=== PATIENT | female | born 1960 | race Caucasian/White ===

== ENCOUNTER 2016-11-11 14:52 | Inpatient (IN) | payer OTHER ==
[~2016-11-11] VITALS: Ht 157.5 cm; Wt 204.1 kg
[~2016-11-11 14:52] MED LIST: BENADRYL25 MG PO; CATAPRES-TTS0.1 MG TOP; COUMADIN5 MG PO; CYCLOBENZAPRINE5 MG PO; FUROSEMIDE20 MG PO; LOPRESSOR25 MG PO; LOVENOX80 MG/0.8 SC; LYRICA25 MG PO; MEIJER ASPIRIN E5 GR; METOPROLOL SUCC25 MG PO; MORPHINE SULFAT30 M4 PO; MULTIVITAMIN1 TAB PO; OXAYDO5 MG; PROTONIX40 MG PO; VITAMIN A
--- NOTE | 2016-11-11 15:56 | DIAGNOSTIC IMAGING REPORT ---
PROCEDURE: XR CHEST 1 VIEW INDICATION: SHORTNESS OF BREATH TECHNIQUE: Portable AP view 03:13 p.m. COMPARISON: Chest 04/29/2016 and 02/23/2016 FINDINGS: Worsening of cardiomegaly and pulmonary vascular congestion. IMPRESSION: 1. CHF
--- NOTE | 2016-11-11 16:56 | ED ORDER SUMMARY ---
..... Patient: PUJA TREJO OrderSheet [facility] VisitID: [id number] [place] [address] 56y, F Registration Date/Time: 11/11/2016 ORDER SHEET Weight: 170.0 kg (stated) Allergies: No Known Drug Allergy GENERAL ORDERS: Chest 1V Urgent (14:59 [facility]/2016 [facility] (Ack 15:04 LTapper) (15:25 EInderbitzen R.N.) Work Checker (Continuous) (14:59 [facility]2016 [facility] (15:03 EInderbitzen R.N.) UA-Culture if indicated Urgent (:11/11/2016 [facility] ) (Ack 15:04 LTapper) Cardiac Panel Stat (:11/11/2016 [facility] (Ack 15:04 LTapper) (15:25 EInderbitzen R.N.) BNP Urgent (15:11/11/2016 [facility]) (Ack 15:04 LTapper) (15:25 EInderbitzen R.N.) D-Dimer Urgent (15:11/11/2016 [facility]) (Ack 15:04 LTapper) (15:25 EInderbitzen R.N.) Amylase Urgent (15:11/11/2016 [facility]) (Ack 15:04 LTapper) (15:25 EInderbitzen R.N.) TSH Urgent (15:11/11/2016 [facility]) (Ack 15:04 LTapper) (15:25 EInderbitzen R.N.) Lipase Urgent (15:11/11/2016 [facility]) (Ack 15:04 LTapper) (15:25 EInderbitzen R.N.) Urine Drug Screen Urgent (15:11/11/2016 [facility]) (Ack 15:04 LTapper) PT with INR Urgent (15:11/11/2016 [facility]) (Ack 15:04 LTapper) (15:25 EInderbitzen R.N.) Oxygen (2 L/min) (NC) (15:00 11/11/2016 [facility]) (15:03 EInderbitzen R.N.) Pulse oximeter (15:00 11/11/2016 [facility]) (15:03 EInderbitzen R.N.) EKG - ER Stat (15:00 11/11/2016 [facility]) (Ack 15:04 LTapper) (17:11 EInderbitzen R.N.) Vitals (15:00 11/11/2016 [facility]) (15:04 EInderbitzen R.N.) CTA Thorax w Cont (No) (GFR>60) (elevated d-dimer) Urgent (16:01 11/11/2016 [facility]) (Ack 16:02 LTapper) (Cancelled: pt cannot fit in the scanner or lay flat for the study17:12 [facility]) MEDICATION ORDERS: Aspirin PO 325 mg (if not taken today) (14:59 11/11/2016 [facility]) (15:29 EInderbitzen R.N.) DuoNeb Neb Tx 1 unit dose (NOW) (16:53 11/11/2016 [facility]) (17:07 RMcCarson) NitroGLYCERIN Paste Topical 1.5 in. (NOW, to CW) (16:53 11/11/2016 [facility]) (17:32 EInderbitzen R.N.) IV FLUIDS: IV Saline Lock (15:00 11/11/2016 [facility]) (15:17 EInderbitzen R.N.) Lasix IV 40 mg (NOW) (16:54 11/11/2016 [facility]) (17:34 EInderbitzen R.N.) ORDER SHEET NOTES: [Electronically signed by Elder Cadet DO (21:44 11/11/2016)] [Electronically signed by Jennifer Mark R.N. (22:22 11/11/2016)] [Electronically locked/signed by Jennifer Mark R.N. (22:22 11/11/2016)]
--- NOTE | 2016-11-11 16:56 | ED NURSING NOTES ---
Clinical Report - Nurses [facility] [address] [place] [address] 11/11/2016 14:53 Patient: PUJA TREJO TRIAGE Triage time 14:45 Nov 11 2016. Acuity: LEVEL 3. Chief Complaint: SHORTNESS OF BREATH and (DYSPNEA ON EXERTION). 14:52 11/11/16. --14:52 Jennifer Mark R.N. 14:47 11/11/16. BP: 137/112. HR: 79. RR: 20. O2 saturation: 98% on nasal cannula at 2 liters/minute. Temp: 98.2 F. Pain level now: 01/31. --14:52 Jennifer Mark R.N. Weight: 170 kg stated. Height/Length: 62 inches Per Patient. BMI: 68.6. --14:49 Jennifer Mark R.N. Medications Warfarin Sodium Oral (Tablet 3 mg) 1-1/2 tablets, daily. --17:35 Jennifer Mark R.N. HydrOXYzine HCl Oral (Tablet 25 mg) 1 tablet, 4x a day. --17:35 Jennifer Mark R.N. Suboxone Sublingual (Film 8-2 mg) 1, DAILY. --17:36 Jennifer Mark R.N. Spironolactone Oral (Tablet 25 mg) 1 tablet, daily. --17:36 Jennifer Mark R.N. BusPIRone HCl Oral (Tablet 10 mg) 1 tablet, 2x a day. --17:36 Jennifer Mark R.N. Pantoprazole Sodium Oral (Tablet Delayed Release 40 mg) 1 tablet, daily. --17:37 Jennifer Mark R.N. Lopressor Oral (Tablet 50 mg) 1 tablet, 2x a day. --17:37 Jennifer Mark R.N. The following entry was struck by Jennifer Mark R.N., 18:37 (11/11/16) Reason - other. <<STRICKEN ENTRY-- Metoprolol Tartrate Oral. --17:37 Jennifer Mark R.N. --END STRIKE>>. Medication/allergy information source: the patient. --14:52 Jennifer Mark R.N. Allergies No Known Drug Allergy. --14:48 Jennifer Mark R.N. History Arrived by EMS. Historian: patient. This started today. ( AT HOME TODAY, WAS UNABLE TO WALK FAR NORMAL WITHOUT GETTING MORE SHORT OF BREATH. NORMALLY USES O2 AT 2-3 LITERS WITH SATS IN MID 90S. COMPLAINS OF CHEST HEAVINESS. NOT FEELING WELL AT HOME FOR A WEEK WITH SOME DIARRHEA, INCONTINENT OF STOOL). The patient has had wheezing and chest pain. No fever, chills or cough. Treatment CERTIFIED TUMOR REGISTRAR: None. PAST MEDICAL HX: Congestive heart failure. Chronic obstructive pulmonary disease. Has not received pneumonia vaccine or seasonal influenza immunization. SOCIAL HX: Never smoker. No alcohol use or drug use. No infectious disease exposure. ABUSE ASSESSMENT: No report of abuse. SELF HARM ASSESSMENT: A self harm assessment was performed. The patient answered "no" to the question "Have you recently felt down, depressed, or hopeless?", "Have you noticed less interest or pleasure in doing things?", "Do you have thoughts of harming or killing yourself?", "Are you here because you tried to hurt yourself?", "Have you ever tried to hurt yourself before today?", "Have you recently had thoughts about harming or killing others?" and "Do you have any dangerous items in your possession?". NUTRITIONAL RISK ASSESSMENT: The nutritional risk assessment revealed no deficiencies. FUNCTIONAL ASSESSMENT: Functional assessment: no impairments noted. LEARNING NEEDS ASSESSMENT: The learning needs assessment revealed no barriers. SKIN INTEGRITY ASSESSMENT: Skin integrity risk assessment completed. No skin integrity risk identified. --14:52 Jeninfer Mark R.N. Interventions ID band on patient. --14:52 Jennifer Mark R.N. NURSING PROGRESS NOTES 14:53 11/11/16. Cardiac rhythm: atrial fibrillation. The initial plan of care for this patient includes an assessment with efforts to address the presence of pain; impairment of the cardiovascular, respiratory and gastrointestinal system. This plan of care was discussed with the patient. Patient gowned. Reassurance given. Patient identifiers checked. Call light placed in reach. Side rails up x 1. Bed placed in lowest position. Brakes of bed on. Patient ready for evaluation. --14:53 Jennifer Mark R.N. 14:56 11/11/16. 2.5 liters reapplied. emergency room registered nurse, pulse oximeter and NIBP monitor placed on patient; cardiac catheterization technician- Lead II; monitor alarms on. --14:56 Jennifer Mark R.N. 15:10 11/11/2016 Site #1 started via IV in the left hand with an 20g angiocath, with aseptic technique and good blood return; one attempt. Blood drawn: rainbow set. Labeled in the presence of the patient and sent to the lab. Saline lock flushed with 10 mL saline. --15:16 Jennifer Mark R.N. 15:16 11/11/16. Portable chest x-ray performed. ( Patient examined by Dr Cadet). --15:16 Jennifer Mark R.N. 15:26 11/11/2016 Aspirin PO Tablets 324 mg given. Allergies verified and confirmed 5 rights. --15:29 Jennifer Mark R.N. 16:15 11/11/16. Cardiac rhythm: atrial fibrillation. The patient is calm and resting quietly. Overall patient status is the same- she states feels the same. ( CT of chest for PE ordered. Pt refusing. States unable to lay flat without severe respiratory distress and panic. States does not want the test.). --16:15 Jennifer Mark R.N. 16:15 11/11/16. BP: 112/56. HR: 86. RR: 24. O2 saturation: 97%. Pain level now 2/10. --16:15 Jennifer Mark R.N. 16:20 11/11/16. ( Per Miles from CT, patient will not fit in gantry for CT scan). --16:20 Jennifer Mark R.N. <<STRICKEN ENTRY-- EKG time: (15:01 PM). EKG was performed by a tech and shown to the ED physician. --16:28 Jenn Her --END STRIKE>> Time on EKG 15:31 --16:32 Jenn Her EKG time: (15:31). EKG was performed by a tech and shown to the ED physician. --16:33 Jenn Her 17:07 11/11/2016 Duoneb (Ipratropium-Albuterol) Neb TX Nebulizer 1 unit dose given. --17:07 Vernonharsh Araceli 17:31 11/11/2016 NITROGLYCERIN PASTE Topical Paste 1.5 inch. Applied to the right upper arm. Allergies verified and confirmed 5 rights. --17:32 Jennifer Mark R.N. 17:32 11/11/2016 Lasix IVP 40 mg given over 2 minute(s) via site #1. Allergies verified and confirmed 5 rights. IV patency established. IV site checked: no pain, redness, or swelling. IV flushed thoroughly pre- and post-medication administration. IVP given by RN. --17:34 Jennifer Mark R.N. 17:38 11/11/16. Cardiac rhythm: atrial fibrillation. --17:38 Jennifer Mark R.N. 17:38 11/11/16. BP: 138/59. HR: 88. RR: 24. O2 saturation: 96%. Temp: 98.7 F. Pain level now 2/10. --17:38 Jennifer Mark R.N. 18:03 11/11/16. ( Patient assisted to bariatric bedside commode. Failure to align marie properly, voided on floor. Pt upset but reassurance given. Pt elected to stay on bedside commode until she is transported upstairs. states will be voiding every 10 minutes following lasix administration). --18:04 Jennifer Mark R.N. DISPOSITION / DISCHARGE 18:39 11/11/2016 Site #[address] upon admission. Good blood return present; flushes easily. --18:39 Jennifer Mark R.N. Condition at departure: improved and stable. The goals identified in the patient's plan of care were met. Transported via stretcher. Report was given to a nurse via a phone call. Report included patient's care, treatment, medications, reviewed medication reconcilliation, and condition (including any recent changes or anticipated changes). All questions were answered. Bed obtained (206). FALL RISK ASSESSMENT: Fall risk assessment completed. No fall risk identified. --18:40 Jennifer Mark R.N. 18:35 11/11/16. BP: 139/60. HR: 70. RR: 22. O2 saturation: 96%. Temp: 98.5 F. Pain level now: 0/10. --18:40 Jennifer Mark R.N. Departure time: 18:40 Nov 11 2016. --18:40 Jennifer Mark R.N. Locked/Released at 11/11/2016 22:22 by Jennifer Mark R.N.
--- NOTE | 2016-11-11 16:56 | ED CLINICAL REPORT ---
Clinical Report - Physicians/Mid Levels [facility] [address] [place] [address] 11/11/2016 14:53 Patient: PUJA TREJO Time Seen: 14:55. Arrived- By ambulance. Historian- patient and EMS personnel. HISTORY OF PRESENT ILLNESS Chief Complaint: DYSPNEA and CHEST PAIN. This started today and is still present. It was gradual in onset and has been waxing/waning. The dyspnea is described as moderate and is worsened by walking and exertion, is improved by rest and is improved with oxygen. The patient has had a cough, chest discomfort and dyspnea on exertion. No fever. (AT HOME TODAY, WAS UNABLE TO WALK FAR NORMAL WITHOUT GETTING MORE SHORT OF BREATH. NORMALLY USES O2 AT 2-3 LITERS WITH SATS IN MID 90S. COMPLAINS OF CHEST HEAVINESS. NOT FEELING WELL AT HOME FOR A WEEK WITH SOME DIARRHEA, INCONTINENT OF STOOL). Similar symptoms previously: Recent medical care: Not recently seen/assessed. REVIEW OF SYSTEMS The patient has had a nasal discharge, sinus drainage, muscle aches, a sore throat and nausea. She has had vomiting, abdominal pain and joint pain. No diarrhea, black stools, bloody stools, headache or fainting episodes. No blurred vision, difficulty with urination, excessive urination, skin rash or enlarged lymph nodes. All systems otherwise negative, except as recorded above. PAST HISTORY Congestive heart failure. RECORDS FROM IN PATIENT: ADMITTING DIAGNOSES: 1. Chest pain. 2. Costochondritis 3. Morbid obesity 4. Chronic atrial fibrillation 5. Degenerative arthritis DISCHARGE DIAGNOSES: 1. Chest pain, etiology unclear, may be secondary to underlying pulmonary embolism 2. Chronic atrial fibrillation 3. Morbid obesity See nurses notes. PCP : Dr Carreno; kriss Marcus MD Cardiology: Suzette PAST HISTORY: Abdominal Pain. Irritable Bowel Syndrome. Anxiety Reaction. Super Morbid obesity. Sialoadenitis. Dental Pain. DVT - Deep Venous Thrombosis - remote history of this. Chronic left lower extremity pain Narcotic dependence SURGERIES: Cholecystectomy. . Left ankle X3. Leg surgery. Tonsillectomy LE Cellulitis Chronic both LE pain Morbid obesity, Irritable bowel Hypertension. Lung disease (seasonal asthma). Infections (cellulitis with hospitalizations in LE Upper thigh most recent about a year ago). History of blood clots with hospitalizations in and 2004; L ankle surgeries x3; c section 1990; gallbladder 1989). No history of pulmonary embolism. No history of pulmonary embolism. Chronic obstructive pulmonary disease. Medications: Lopressor Oral (Tablet 50 mg) 1 tablet, 2x a day. Pantoprazole Sodium Oral (Tablet Delayed Release 40 mg) 1 tablet, daily. BusPIRone HCl Oral (Tablet 10 mg) 1 tablet, 2x a day. Spironolactone Oral (Tablet 25 mg) 1 tablet, daily. Suboxone Sublingual (Film 8-2 mg) 1, DAILY. HydrOXYzine HCl Oral (Tablet 25 mg) 1 tablet, 4x a day. Warfarin Sodium Oral (Tablet 3 mg) 1-1/2 tablets, daily. Allergies: No Known Drug Allergy. SOCIAL HISTORY Never smoker. No alcohol use or drug use. ADDITIONAL NOTES The nursing notes have been reviewed. PHYSICAL EXAM Vital Signs: 11/11/2016 16:15 BP: 112/56. HR: 86. RR: 24. O2 saturation: 97%. 11/11/2016 14:48 BP: 137/112. HR: 79. RR: 20. O2 saturation: 98%. Temp: 98.2 F. Pain level now: 4/10. Appearance: Alert. Patient in mild distress. Eyes: Eyes normal inspection. No pale conjunctivae or scleral icterus. ENT: Pharynx normal. Uvula midline. Neck: Normal inspection. No jugular venous distention. Neck supple. CVS: Abnormal rhythm, which is irregularly irregular. Pulses normal. Respiratory: No respiratory distress. Moderate rales present in the lower third of both lung roberts. Abdomen: Soft and nontender. Severely obese. Back: Normal inspection. Skin: Skin warm and dry. Normal skin color. Normal skin turgor. Extremities: Extremities do not exhibit normal ROM. Lower extremity edema. No calf tenderness. Neuro: Oriented X 3. No motor deficit. LABS, X-RAYS, AND EKG EKG: EKG time: (15:31). Atrial fibrillation (ventricular rate 80). Nondiagnostic Q waves in lead III. Decreased QRS voltage. Non-specific ST segment / T wave abnormalities. The study has been interpreted contemporaneously by me. The EKG appears to be a good tracing. Rhythm Strip #1: Atrial fibrillation. Chest X-ray: Congestive heart failure present. Vascular congestion present. Cardiomegaly. Views: AP (portable). Technique: good. The X-rays were interpreted contemporaneously by me. The X-rays were discussed with the radiologist (via PACS note). A comparison with prior films reveals that the findings have worsened. Laboratory Tests: CBC w Diff: (NAPOLEON: 11/11/2016 15:15) ( MsgRcvd 11/11/2016 15:30) Final results Test Result Flag Units (Reference) WHITE BLOOD COUNT 4.5 K/uL (4.5-11.5) RED BLOOD COUNT 4.54 M/uL (4.00-5.20) HEMOGLOBIN 11.5 L gm/dL (12.0-16.0) HEMATOCRIT 36.8 % (36.0-46.0) MEAN CELL VOLUME 81 fL (80-100) MEAN CORPUSCULAR HGB 25 L pg (26-34) MEAN CORPUSCULAR HGB CONC 31 g/dL (31-37) RED CELL DISTRIBUTION WIDTH 18.3 H % (11.6-14.8) PLATELET COUNT 178 K/uL (150-400) NEUTROPHIL % 71.6 % (50-75) LYMPH % 16.1 L % (25-40) MONO % 6.7 % (3-14) EOSINOPHIL % 5.4 H % (0-4) BASOPHIL % 0.2 % (0-2) PT with INR: (NAPOLEON: 11/11/2016 15:15) ( MsgRcvd 11/11/2016 15:51) Final results Test Result Flag Units (Reference) INR 3.1 H (0.8-1.2) Low Intensity Therapy: INR 1.5-2.0 PT range 18.5-23.1Mod.Intensity Therapy: INR 2.0-3.0 PT range 23.1-31.5High Intensity Therapy: INR 2.5-3.5 PT range 27.4-35.5High Intensity Therapy 2: INR 3.0-4.0 PT range 31.5-39.3 D-DIMER QUANTITATIVE 1.31 H ug/mLFEU (0.27-0.52) The primary value of this quantitative assay relates toits negative predictive value (i.e. exclusion) of pulmonaryembolism/deep vein thrombosis/DIC.Elevated levels of d-dimer may also occur with:, age, cancer, inflammation, liver disease,post-op, infection, hematoma, coronary disease, peripheralarteriopathy, bleeding disorders and thrombolytic treatment.Results should be correlated with other clinical andradiological data.Testing Methodology: Latex Immunoassay BNP: (NAPOLEON: 11/11/2016 15:15) ( MsgRcvd 11/11/2016 15:51) Final results Test Result Flag Units (Reference) B-TYPE NATRIURETIC PEPTIDE 399 H pg/ml (5-100) CHEM 13 PANEL: (NAPOLEON: 11/11/2016 15:15) ( VtgRcvd 11/11/2016 15:55) Final results Test Result Flag Units (Reference) GLUCOSE 114 H mg/dL (70-110) BUN 15 mg/dL (7-18) CREATININE 1.1 mg/dL (0.6-1.3) Estimated GFR 54.81 mL/min Estimated GFR- >60 mL/min Note: Persistent reduction over 3 months in eGFR<60 mL/min/1.73 m2 defines CKD. Patients with eGFR values>=60 mL/min/1.73 m2 may also have CKD if evidence ofpersistent proteinuria. Additional information may be foundat www.kidney.org. SODIUM 143 mmol/L (136-145) POTASSIUM 3.9 mmol/L (3.5-5.1) CHLORIDE 106 mmol/L (98-107) CARBON DIOXIDE 36 H mmol/L (21-32) CALCIUM 9.0 mg/dL (8.5-10.1) TOTAL PROTEIN 8.0 g/dL (6.4-8.2) ALBUMIN 3.0 L g/dL (3.3-5.0) BILIRUBIN, TOTAL 1.3 H mg/dL (0.0-1.0) ALKALINE PHOSPHATASE 120 H U/L (46-116) AST (SGOT) 16 U/L (15-37) ALT (SGPT) 11 L U/L (12-78) CPK 27 U/L (24-260) MAGNESIUM 1.7 L mg/dL (1.8-2.4) LIPASE 167 U/L (73-393) AMYLASE 23 L U/L (25-115) TROPONIN I <0.05 ng/mL (0.00-1.5) TROPONIN REFERENCE RANGE:<0.1 NEGATIVE0.1-1.5 INDETERMINANT>1.5 POSITIVE THYROID STIMULATING HORMONE 1.756 uIU/mL (0.30-3.74) . Pulse Oximetry: 11/11/2016 14:48 O2 saturation: 98%. (FIO2 - room air). Interpretation: normal. PROGRESS AND PROCEDURES Course of Care: ASA 325mg. Pt currently anticoagulated with INR of 3.1. NTP 1 10/25". Duoneb. Lasix 40 mg IV. Pt with elevated d-dimer and is at risk for DVT/ PE (had prior PE work up which necessitated transfer to another facility for CT pulm angio). May have LE duplex. She has moderate CHF now and hypoxia with BNP approx 400. Discussed case with hospitalist, (Yruma call placed 16:55 call returned 17:10). Reviewed test results. Agreed upon treatment plan. Health care provider will see patient in ED. Patient/family counseled. Old ED and inpatient records reviewed. Patient has had multiple ED visits. Transition orders written. Disposition: Observation in Acute Care. Condition: guarded and improved. CLINICAL IMPRESSION Acute dyspnea. Precordial chest pain characterized as "discomfort". Nausea. Diarrhea. Chronic systolic, left ventricular congestive heart failure. Chronic atrial fibrillation with controlled rate. The patient is prescribed warfarin or another FDA approved anticoagulant. 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 (Electronically signed by Elder Cadet DO 11/11/2016 21:44)
--- NOTE | 2016-11-11 16:56 | ED ORDER SUMMARY ---
..... Patient: PUJA TREJO OrderSheet [facility] VisitID: [id number] [place] [address] 56y, F Registration Date/Time: 11/11/2016 ORDER SHEET Weight: 170.0 kg (stated) Allergies: No Known Drug Allergy GENERAL ORDERS: Chest 1V Urgent (14:59 [facility]/2016 [facility] (Ack 15:04 LTapper) (15:25 EInderbitzen R.N.) Machine Spring Former (Continuous) (14:59 [facility]/11/2016 [facility] (15:03 EInderbitzen R.N.) UA-Culture if indicated Urgent (:11/11/2016 [facility] ) (Ack 15:04 LTapper) Cardiac Panel Stat (:11/11/2016 [facility]) (Ack 15:04 LTapper) (15:25 EInderbitzen R.N.) BNP Urgent (15:11/11/2016 [facility]) (Ack 15:04 LTapper) (15:25 EInderbitzen R.N.) D-Dimer Urgent (15:11/11/2016 [facility]) (Ack 15:04 LTapper) (15:25 EInderbitzen R.N.) Amylase Urgent (15:11/11/2016 [facility] (Ack 15:04 LTapper) (15:25 EInderbitzen R.N.) TSH Urgent (15:11/11/2016 [facility]) (Ack 15:04 LTapper) (15:25 EInderbitzen R.N.) Lipase Urgent (15:11/11/2016 [facility]) (Ack 15:04 LTapper) (15:25 EInderbitzen R.N.) Urine Drug Screen Urgent (15:11/11/2016 [facility]) (Ack 15:04 LTapper) PT with INR Urgent (15:11/11/2016 [facility]) (Ack 15:04 LTapper) (15:25 EInderbitzen R.N.) Oxygen (2 L/min) (NC) (15:00 11/11/2016 [facility]) (15:03 EInderbitzen R.N.) Pulse oximeter (15:00 11/11/2016 [facility]) (15:03 EInderbitzen R.N.) EKG - ER Stat (15:00 11/11/2016 [facility]) (Ack 15:04 LTapper) (17:11 EInderbitzen R.N.) Vitals (15:00 11/11/2016 [facility]) (15:04 EInderbitzen R.N.) CTA Thorax w Cont (No) (GFR>60) (elevated d-dimer) Urgent (16:01 11/11/2016 [facility]) (Ack 16:02 LTapper) (Cancelled: pt cannot fit in the scanner or lay flat for the study17:12 [facility]) MEDICATION ORDERS: Aspirin PO 325 mg (if not taken today) (14:59 11/11/2016 [facility]) (15:29 EInderbitzen R.N.) DuoNeb Neb Tx 1 unit dose (NOW) (16:53 11/11/2016 [facility]) (17:07 RMcCarson) NitroGLYCERIN Paste Topical 1.5 in. (NOW, to CW) (16:53 11/11/2016 [facility]) (17:32 EInderbitzen R.N.) IV FLUIDS: IV Saline Lock (15:00 11/11/2016 [facility]) (15:17 EInderbitzen R.N.) Lasix IV 40 mg (NOW) (16:54 11/11/2016 [facility]) (17:34 EInderbitzen R.N.) ORDER SHEET NOTES: [Electronically signed by Elder Cadet DO (21:44 11/11/2016)] [Electronically signed by Jennifer Mark R.N. (22:22 11/11/2016)] [Electronically locked/signed by Jennifer Mark R.N. (22:22 11/11/2016)]
[2016-11-11] MEDS ORDERED: COUMADIN3 MG PO (18:47)
[2016-11-11] MEDS ORDERED: VISTARIL25 MG PO (18:50)
[2016-11-11] MEDS ORDERED: ALDACTONE25 MG PO (18:51)
[2016-11-11] MEDS ORDERED: SUBOXONE1 MI1 SL (18:56)
[2016-11-11] MEDS ORDERED: BUSPIRONE HCL10 MG PO (19:01)
[2016-11-11 19:45] VITALS: BP 138/106
--- NOTE | 2016-11-11 19:55 | HISTORY AND PHYSICAL ---
ADMITTED: 11/11/2016 HISTORY OF PRESENT ILLNESS: The patient is a 56-year-old female with chief complaint of shortness of breath. She is an obese female with the history of chronic atrial fibrillation, on anticoagulation, CHF with normal ejection fraction, who presents with increasing shortness of breath. She normally uses 2- 3 L of oxygen at home and her saturations were in the mid 90s. Today she was unable to walk a short distance without getting short of breath. She also complains of intermittent chest heaviness. Last week she had flu-like symptoms with some diarrhea. No fever, no chills. She reports increasing leg edema. She denies having any PND. She mostly sleeps sitting up. The patient was seen in the emergency department where she was noted to have an elevated blood pressure of 137/112, heart rate was 79, respirations were 20. She was noted to have increasing bilateral pitting edema of her lower extremities. Her BNP was slightly more elevated than usual at 399, and her x-ray shows increasing pulmonary vascular congestion consistent with congestive heart failure. MEDICAL/SURGICAL HISTORY: Past medical history: Pertinent for history of obesity , chronic atrial fibrillation, on anticoagulation, history of prior narcotic dependence, but currently on Suboxone, history of anxiety, history of prior DVTs , history of anxiety, irritable bowel. Past surgeries: Include cholecystectomy, left ankle surgery x3, tonsillectomy and the prior . PRIMARY CARE PHYSICIAN: Alejo Carreno MD MEDICATIONS: 1. Warfarin 3 mg, she takes 1 tablet 4 times a week and 2 tablets 3 times a week. 2. Hydroxyzine 25 four times a day. 3. Suboxone film 8/2 mg 1/2 p.o. b.i.d. 4. Spironolactone 25 mg daily. 5. BuSpar 10 mg b.i.d. 6. Protonix 40 mg daily. 7. Lopressor 50 mg. 8. Metoprolol tartrate 50 b.i.d. ALLERGIES: 1. SHE HAS NO KNOWN DRUG ALLERGIES. CODE STATUS: FULL CODE. SOCIAL HISTORY: She does not smoke. No alcohol use. No recreational drug use. She lives with her son. FAMILY HISTORY: Noncontributory to patient's illness. REVIEW OF SYSTEMS: Please see HPI above. PHYSICAL EXAMINATION: GENERAL: Shows a well-developed, obese female. VITAL SIGNS: Blood pressure of 137/112, repeat blood pressure was 138/59, heart rate 88, respirations 24, O2 saturation 96% on 2 L. HEENT: She is normocephalic and with pink conjunctivae. Anicteric. Moist oral mucosa. NECK: JVD could not be appreciated. She has a large neck. LUNGS: Show basilar crackles without any wheezes or rhonchi. No use of accessory muscles of respirations. CARDIOVASCULAR: Regular rhythm. No gallops, murmurs or rubs. ABDOMEN: Obese, soft. Organomegaly could not be detected. EXTREMITIES: Venous stasis changes and bilateral +3 pitting edema on both lower extremities. 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 NEUROLOGIC: She is able to move all extremities. She is alert, oriented x3. No lateralizing signs. LAB/IMAGING: Her laboratories show a hemoglobin of 11.5, hematocrit 36.8, MCV of 81, platelets of 178,000, neutrophils 71.6, lymphocytes 16.1. Her INR is 3.1. D-dimer is 1.31. Her sodium is 143, potassium 3.9, chloride 106, CO2 36, BUN 15, creatinine 1.1, magnesium 1.7. Albumin is 3, total bilirubin is 1.3, alk phos is 120, AST is 16, ALT 11, lipase 167, amylase 23. CPK, troponins are normal. TSH 1.756. BNP is 399. IMPRESSION: 1. Chest pain. 2. Congestive heart failure with normal ejection fraction. 3. Morbid obesity. 4. Hypertension. 5. Chronic atrial fibrillation, on anticoagulation. 6. History of chronic narcotic dependence, currently on Suboxone. PLAN: We will admit to observation on telemetry. We will recheck cardiac enzymes tonight and in the a.m. We will empirically place the patient on nitrates to control blood pressure and Lasix 40 b.i.d. We will repeat echocardiogram in a.m. The patient has an elevated D-dimer, but this could be due to a variety of reasons where she is already on Coumadin and is adequately anticoagulated, so I do not think she would need any further study at the current time; however, if her condition does not improve with diuretics and no other etiology could be found for her increasing shortness of breath, may need to do further studies like a repeat CT angiogram. I will also check for influenza screen. We will resume her preadmission medications. We will place on Protonix for stress gastritis prophylaxis. The plan of care was discussed with the patient, she agreed and verbalized understanding. She is a FULL CODE.
--- NOTE | 2016-11-11 22:22 | ED DISCHARGE INSTRUCTIONS ---
Patient: PUJA TREJO General Instructions [facility] VisitID: [id number] [place] [address] 56y, F Registration Date/Time: 11/11/2016 Acute dyspnea. Precordial chest pain characterized as "discomfort". Nausea. Diarrhea. Chronic systolic, left ventricular congestive heart failure. Chronic atrial fibrillation with controlled rate. The patient is prescribed warfarin or another FDA approved anticoagulant. 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 (Electronically signed by Elder Cadet DO 11/11/2016 21:44)
--- NOTE | 2016-11-11 22:22 | ED MAR SUMMARY ---
..... Medication Administration Record [facility] [address] [place] [address] Patient: PUJA TREJO Visit ID: [id number] 56y, F Weight: 170.0 kg Height/Length: 62 in BMI: 68.6 ALLERGIES: No Known Drug Allergy Given 15:26 11/11/2016 Jennifer Mark R.N. Medication Administered: ASPIRIN [PO], Dose: 324 mg Tablets PO. Medication Ordered: Aspirin PO 325 mg (if not taken today). Given 17:07 11/11/2016 Araceli Guerrero, Medication Administered: DUONEB [NEB TX] (IPRATROPIUM-ALBUTEROL), Dose: 1 unit dose Nebulizer Neb TX. Medication Ordered: DuoNeb Neb Tx 1 unit dose (NOW). Given 17:31 11/11/2016 Jennifer Mark R.N. Medication Administered: NITROGLYCERIN PASTE [TOPICAL], Dose: 1.5 in. Paste Topical. Medication Ordered: NitroGLYCERIN Paste Topical 1.5 in. (NOW, to CW). Given 17:32 11/11/2016 Jennifer Mark R.N. Medication Administered: LASIX [IVP], Dose: 40 mg IVP over 2 minute(s), Site: #1 left hand. Medication Ordered: Lasix IV 40 mg (NOW).
--- NOTE | 2016-11-11 22:22 | ED MED RECONCILIATION SUMMARY ---
Patient: PUJA TREJO Medication Reconciliation Report [facility] VisitID: [id number] [address] [place] [address] 56y, F Registration Date/Time: 11/11/2016 Weight: 170.0 kg Height/Length: 62 in. BMI: 68.6 ALLERGIES: No Known Drug Allergy The patient's Home Medications are listed below: THE FOLLOWING MEDICATIONS NEED TO BE RECONCILED: BusPIRone HCl Oral (10 mg) 1 tablet, 2x a day HydrOXYzine HCl Oral (25 mg) 1 tablet, 4x a day Lopressor Oral (50 mg) 1 tablet, 2x a day Pantoprazole Sodium Oral (40 mg) 1 tablet, daily Spironolactone Oral (25 mg) 1 tablet, daily Suboxone Sublingual (8-2 mg) 1, DAILY Warfarin Sodium Oral (3 mg) 1-1/2 tablets, daily The source(s) of the original Home Medication information: patient The following Medications were given to the patient in the Emergency Department: Aspirin [PO] PO 324 mg, administered: 11/11/2016 3:26:00 PM Duoneb [Neb Tx] Neb TX 1 unit dose, administered: 11/11/2016 5:07:00 PM NITROGLYCERIN PASTE [TOPICAL] Topical 1.5 in., administered: 11/11/2016 5:31:00 PM Lasix [IVP] IVP 40 mg, administered: 11/11/2016 5:32:00 PM The following Medications were prescribed to the patient: None.
--- NOTE | 2016-11-11 22:22 | ED MAR SUMMARY ---
..... Medication Administration Record [facility] [address] [place] [address] Patient: PUJA TREJO Visit ID: [id number] 56y, F Weight: 170.0 kg Height/Length: 62 in BMI: 68.6 ALLERGIES: No Known Drug Allergy Given 15:26 11/11/2016 Jennifer Mark R.N. Medication Administered: ASPIRIN [PO], Dose: 324 mg Tablets PO. Medication Ordered: Aspirin PO 325 mg (if not taken today). Given 17:07 11/11/2016 Araceli Guerrero, Medication Administered: DUONEB [NEB TX] (IPRATROPIUM-ALBUTEROL), Dose: 1 unit dose Nebulizer Neb TX. Medication Ordered: DuoNeb Neb Tx 1 unit dose (NOW). Given 17:31 11/11/2016 Jennifer Mark R.N. Medication Administered: NITROGLYCERIN PASTE [TOPICAL], Dose: 1.5 in. Paste Topical. Medication Ordered: NitroGLYCERIN Paste Topical 1.5 in. (NOW, to CW). Given 17:32 11/11/2016 Jennifer Makr R.N. Medication Administered: LASIX [IVP], Dose: 40 mg IVP over 2 minute(s), Site: #1 left hand. Medication Ordered: Lasix IV 40 mg (NOW).
--- NOTE | 2016-11-11 22:22 | ED MED RECONCILIATION SUMMARY ---
Patient: PUJA TREJO Medication Reconciliation Report [facility] VisitID: [id number] [address] [place] [address] 56y, F Registration Date/Time: 11/11/2016 Weight: 170.0 kg Height/Length: 62 in. BMI: 68.6 ALLERGIES: No Known Drug Allergy The patient's Home Medications are listed below: THE FOLLOWING MEDICATIONS NEED TO BE RECONCILED: BusPIRone HCl Oral (10 mg) 1 tablet, 2x a day HydrOXYzine HCl Oral (25 mg) 1 tablet, 4x a day Lopressor Oral (50 mg) 1 tablet, 2x a day Pantoprazole Sodium Oral (40 mg) 1 tablet, daily Spironolactone Oral (25 mg) 1 tablet, daily Suboxone Sublingual (8-2 mg) 1, DAILY Warfarin Sodium Oral (3 mg) 1-1/2 tablets, daily The source(s) of the original Home Medication information: patient The following Medications were given to the patient in the Emergency Department: Aspirin [PO] PO 324 mg, administered: 11/11/2016 3:26:00 PM Duoneb [Neb Tx] Neb TX 1 unit dose, administered: 11/11/2016 5:07:00 PM NITROGLYCERIN PASTE [TOPICAL] Topical 1.5 in., administered: 11/11/2016 5:31:00 PM Lasix [IVP] IVP 40 mg, administered: 11/11/2016 5:32:00 PM The following Medications were prescribed to the patient: None.
--- NOTE | 2016-11-11 22:22 | ED DISCHARGE INSTRUCTIONS ---
Patient: PUJA TREJO General Instructions [facility] VisitID: [id number] [address] [place] [address] 56y, F Registration Date/Time: 11/11/2016 Acute dyspnea. Precordial chest pain characterized as "discomfort". Nausea. Diarrhea. Chronic systolic, left ventricular congestive heart failure. Chronic atrial fibrillation with controlled rate. The patient is prescribed warfarin or another FDA approved anticoagulant. 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 (Electronically signed by Elder Cadet DO 11/11/2016 21:44)
[2016-11-11 22:40] VITALS: BP 152/96
[2016-11-11 23:40] VITALS: BP 138/80
[2016-11-12 02:19] VITALS: BP 124/87
[2016-11-12 06:12] VITALS: BP 139/61
--- NOTE | 2016-11-12 07:43 | Progress Note ---
Subjective General Chest heaviness improved today. + nausea. No vomitting, constipation. + diarrhea. Chronic abd pain stable. Physical Exam Vital Signs / I&Os Vital Signs Date Time Temp Pulse Resp B/P Pulse O2 O2 Flow FiO2 Ox Delivery Rate 11/12 0612 37.1 71 20 139/61 96 Nasal 3.0 Cannula 11/12 0420 3.0 11/12 0354 Nasal 3.0 Cannula 11/12 0219 36.8 70 24 124/87 96 Nasal 3.0 Cannula 11/11 2340 123 24 138/80 96 Nasal 2.5 Cannula 11/11 2240 36.7 92 24 152/96 96 Nasal 3.5 Cannula 11/11 1945 36.7 61 24 138/106 95 Nasal 3.0 Cannula I&O 11/12 0000 11/11 1600 11/11 0800 Intake Total 0 Output Total 2700 Balance -2700 General Appearance Alert, Oriented X3, Cooperative, No acute distress Lungs Very mild crackles in bilateral lower roberts. Cardiovascular Regular rate and rhythm, Normal S1 and S2, No murmurs, gallops, rubs Abdomen Normal bowel sounds, Soft, Mild diffuse tenderness withOUT peritoneal signs. Skin 2+ edema bilaterally Assessment and Plan Problem List 1. CHF exacerbation Plan will continue diuresis today. Echo ordered for today. 2. Morbid obesity due to excess calories 3. Diarrhea Plan Associated with nausea x 1 week. ? infectious. Labs ordered.
[2016-11-12 10:24] VITALS: BP 131/65
[2016-11-12 15:30] VITALS: BP 114/51
--- NOTE | 2016-11-12 16:03 | DIAGNOSTIC IMAGING REPORT ---
PROCEDURE: 2-D M-mode echo Doppler CLINICAL INDICATION: CHF TECHNIQUE: Standard technique. Technically difficult study due to patient's large body habitus weighing 449 pounds and having pain limiting exam COMPARISON: None available FINDINGS: One. Valves: The aortic valve exhibits sclerosis without evidence for stenosis mean gradient mm mercury no aortic insufficiency seen were demonstrated. The mitral valve exhibits normal configuration with to plus MR the tricuspid valve exhibits to 3+ of TR with RV systolic pressure 67 mmHg pulmonic valve was not seen Two. Chambers: Biatrial enlargement present right ventricular enlargement of a mild degree is present RV systolic pressure elevated at 67 mmHg RV function appears to be present. Left ventricle is normal in size LVH present LV EF visually estimated to be 55% Three.. Miscellaneous no abnormalities of the aortic root or pericardium are appreciated Four. Echo Doppler no shunts detected IMPRESSION: LV EF 55% LVH Biatrial enlargement Aortic sclerosis no stenosis 2+ MR To 3+ TR with RVSP 67 mmHg RV RVE
[2016-11-12 18:37] VITALS: BP 138/52
[2016-11-12 22:14] VITALS: BP 138/62
[2016-11-13 02:06] VITALS: BP 128/57
[2016-11-13 06:36] VITALS: BP 155/92
--- NOTE | 2016-11-13 12:26 | Progress Note ---
Subjective General Note Date: November 13, 2016 Admission Date: November 11, 2016 Hospital Day: 3 PCP: Alejo Carreno M.D. Status: Inpatient Advanced Directive: FULL CODE Room: 206 Brief History: The patient is a 56-year-old white female with a significant past medical history of morbid obesity, atrial fibrillation, chronic anticoagulation, narcotic dependence, DVT, generalized anxiety disorder, who presented to [facility] emergency room on the day of admission secondary to complaints of chest discomfort. Evaluation at [facility] emergency room was consistent with chest pain rule out ACS, CHF, chronic atrial fibrillation, chronic anticoagulation. Secondary to the above, the patient was admitted for further evaluation and treatment by Dr. Brian Donald. For other history present illness, past medical history, family history, social history, review of systems, and admission physical examination please see the patient's history and physical examination and ER visit note in the patient's medical record. Subjective: The patient states she is doing well other than slight chest discomfort. This responded well to GI cocktail. No other specific complaints. Patient requests: None Medications and Allergies Medications Current Medications Sig/[place] Start time Last Medication Dose Route Stop Time Status Admin Ketorolac 15 MG Q6H PRN 11/13 0615 AC 11/13 Tromethamine IV 0720 Nystatin See Dose TID 11/12 2200 AC 11/13 Insts (1) TOP 0643 Warfarin Sodium 4 MG 1400 11/12 1400 AC 11/12 PO 1411 Aspirin 325 MG DAILY 11/12 0900 AC 11/13 PO 0903 Famotidine 20 MG DAILY 11/12 0900 AC 11/13 PO 0903 Fluticasone/ See Dose RTQ12H 11/12 0800 AC 11/13 Salmeterol Insts (2) IN 0920 Clarify Med Order See Dose ASDIRECTED 11/12 0745 AC Insts (3) PO Loperamide HCl 2 MG PRN PRN 11/12 0745 AC PO Nitroglycerin 1 GM Q6HR 11/12 0000 AC 11/13 TOP 0643 Albuterol Sulfate 2.5 MG Q6H PRN 11/11 2230 AC IN Buspirone HCl 10 MG BID 11/11 2100 AC 11/13 PO 0903 Furosemide 40 MG BID 11/11 2100 AC 11/13 IV 0903 Metoprolol Tartrate 50 MG BID 11/11 2100 AC 11/13 PO 0903 Patient Own See Dose BID 11/11 2100 AC 11/12 Medication Insts (4) PO 2050 Clarify Med Order See Dose ASDIRECTED 11/11 2014 AC Insts (5) PO Hydroxyzine Pamoate 25 MG QID PRN 11/11 1845 AC 11/13 PO 0903 Ondansetron HCl 4 MG Q4H PRN 11/11 1730 AC 11/12 IV 2250 Dose Instructions: (1)Nystatin: TO AFFECTED AREA (2)Fluticasone/Salmeterol: 1 CLICK (3)Clarify Med Order: PT MEDS IN PHARMACY (4)Patient Own Medication: SUBOXONE 1/2 FILM SL BID (5)Clarify Med Order: PT MEDS IN PSB (OMNICELL) Allergies Coded Allergies: Acetaminophen (enlarged liver 11/11/16) Physical Exam Vital Signs / I&Os Vital Signs Date Time Temp Pulse Resp B/P Pulse O2 O2 Flow FiO2 Ox Delivery Rate 11/13 0936 3.0 11/13 0853 Nasal 3.0 Cannula 11/13 0636 71 20 155/92 99 Nasal 3.0 Cannula 11/13 0206 98.4 74 16 128/57 95 Nasal 3.0 Cannula 11/13 0030 Nasal 3.0 Cannula 11/12 2214 99.5 66 18 138/62 95 Nasal 3.0 Cannula 11/12 2102 3.0 11/12 1837 97.9 69 20 138/52 95 Nasal 3.0 Cannula 11/12 1630 Nasal 3.0 Cannula 11/12 1605 93 Nasal 3.0 Cannula 11/12 1530 97.9 71 22 114/51 89 Nasal 2.0 Cannula 11/12 1347 2.0 I&O 11/13 0000 11/12 1600 11/12 0800 Intake Total 240 240 Output Total 2150 1250 1250 Balance -1910 -1010 -1250 General Appearance Alert, Oriented X3, Cooperative, No acute distress Lungs Clear to auscultation Cardiovascular Normal S1 and S2, irregular rhythm, rate controlled Abdomen Normal bowel sounds, Soft, No tenderness Extremities No cyanosis, No clubbing, edema unchanged Neurological Cranial nerves intact, No lateralizing signs Psych/Mental Status Mental status normal, Mood normal LAB Results Laboratory Tests 11/13 11/13 0520 0520 Chemistry Plasma Sodium (136 - 145 mmol/L) 146 Plasma Potassium (3.5 - 5.1 mmol/L) 3.4 Plasma Chloride (98 - 107 mmol/L) 102 CO2 (Enzymatic) (21 - 32 mmol/L) 41 BUN (7 - 18 mg/dL) 13 Creatinine (0.6 - 1.3 mg/dL) 1.1 Est GFR ( Amer) (mL/min) >60 Est GFR (Non-Af Amer) (mL/min) 54.81 Glucose (70 - 110 mg/dL) 111 Plasma Calcium (8.5 - 10.1 mg/dL) 8.6 Plasma Magnesium (1.8 - 2.4 mg/dL) 1.5 B-Natriuretic Peptide (5 - 100 pg/ml) 306 Coagulation INR (0.8 - 1.2) 3.8 Hematology WBC (4.5 - 11.5 K/uL) 5.3 RBC (4.00 - 5.20 M/uL) 3.96 Hgb (12.0 - 16.0 gm/dL) 9.9 Hct (36.0 - 46.0 %) 32.0 MCV (80 - 100 fL) 81 MCH (26 - 34 pg) 25 RDW (11.6 - 14.8 %) 18.8 Neut % (Auto) (50 - 75 %) 56.8 Lymph % (Auto) (25 - 40 %) 25.6 [place] % (Auto) (3 - 14 %) 9.8 Eos % (Auto) (0 - 4 %) 7.3 Baso % (Auto) (0 - 2 %) 0.5 Plt Count, EDTA (150 - 400 K/uL) 165 PUBS MCHC (31 - 37 g/dL) 31 Microbiology Date/Time Procedure - Status Source Growth 11/13 0645 Influenza Screen - COMP NASALPHAR Assessment and Plan Problem List 1. Chest pain Plan -Patient with persistent chest discomfort -Responsive to GI cocktail -Begin PPI, Protonix 40 mg twice a day -Monitor -Does not appear cardiac in origin 2. Morbid obesity due to excess calories Plan -Primary objective postdischarge his weight reduction program -Follow-up with Dr. Carreno -Nutritional consultation 3. Atrial fibrillation Plan -Stable -Heart rate well controlled -Outpatient follow-up with Dr. Carreno -No further workup at this time. Check previous echocardiogram -Continue anticoagulation 4. Opiate dependence Plan -Continue medications post discharge -Follow up with Dr. Fetty 5. CHF exacerbation Plan -Patient with mild elevation of BNP -BNP improving -Monitor -Continue present therapy -Review previous echocardiogram -Low-salt diet, weight reduction program, CHF education 6. Chronic anticoagulation Status Chronic Onset Date Unknown Plan -INR elevated -Hold Coumadin at this time Current status: Fair, improved Anticipated discharge date: Anticipated discharge in 2-3 days Anticipated discharge placement: Home Patient care time: Time spent in chart review, patient interview, physical exam, CPOE, and care documentation: 35 minutes Visit to patient today: 1 Complexity of care: High E&M Codes Rounding: Inpt-High/[id number]
[2016-11-13 14:43] VITALS: BP 127/54
[2016-11-13 18:53] VITALS: BP 122/59
[2016-11-13 22:12] VITALS: BP 124/60
[2016-11-14 02:31] VITALS: BP 135/58
[2016-11-14 06:27] VITALS: BP 122/59
--- NOTE | 2016-11-14 07:35 | Progress Note ---
Subjective General Note Date: November 14, 2016 Admission Date: November 11, 2016 Hospital Day: 4 PCP: Alejo Carreno M.D. Status: Inpatient Advanced Directive: FULL CODE Room: 206 Brief History: The patient is a 56-year-old white female with a significant past medical history of morbid obesity, atrial fibrillation, chronic anticoagulation, narcotic dependence, DVT, generalized anxiety disorder, who presented to [facility] emergency room on the day of admission secondary to complaints of chest discomfort. Evaluation at [facility] emergency room was consistent with chest pain rule out ACS, CHF, chronic atrial fibrillation, chronic anticoagulation. Secondary to the above, the patient was admitted for further evaluation and treatment by Dr. Brian Donald. For other history present illness, past medical history, family history, social history, review of systems, and admission physical examination please see the patient's history and physical examination and ER visit note in the patient's medical record. Subjective: The patient states she is doing well today. Abdominal/chest discomfort improved. Patient requests: No specific Medications and Allergies Medications Current Medications Sig/Morelia Start time Last Medication Dose Route Stop Time Status Admin Warfarin Sodium 4 MG 1400 11/14 1400 CAN PO Potassium Chloride 20 MEQ DAILY 11/14 0900 AC PO Magnesium Chloride 535 MG TID 11/13 2200 AC 11/14 PO 0530 Pantoprazole Sodium 40 MG PPIBID 11/13 1600 AC 11/14 Sesquihydrate PO 0530 Non-Formulary 2 EA BID 11/13 1300 AC 11/13 Medication PO 2218 Ketorolac 15 MG Q6H PRN 11/13 0615 AC 11/13 Tromethamine IV 0720 Nystatin See Dose TID 11/12 2200 AC 11/14 Insts (1) TOP 0529 Aspirin 325 MG DAILY 11/12 0900 AC 11/13 PO 0903 Fluticasone/ See Dose RTQ12H 11/12 0800 AC 11/13 Salmeterol Insts (2) IN 2012 Clarify Med Order See Dose ASDIRECTED 11/12 0745 AC Insts (3) PO Loperamide HCl 2 MG PRN PRN 11/12 0745 AC PO Nitroglycerin 1 GM Q6HR 11/12 0000 AC 11/14 TOP 0529 Albuterol Sulfate 2.5 MG Q6H PRN 11/11 2230 AC IN Buspirone HCl 10 MG BID 01/11/13 PO 2145 Furosemide 40 MG BID 11/11 IV 2145 Metoprolol Tartrate 50 MG BID 11/11 PO 2145 Hydroxyzine Pamoate 25 MG QID PRN 11/11 1845 AC 11/13 PO 1340 Ondansetron HCl 4 MG Q4H PRN 11/11 1730 AC 11/12 IV 2250 Dose Instructions: (1)Nystatin: TO AFFECTED AREA (2)Fluticasone/Salmeterol: 1 CLICK (3)Clarify Med Order: PT MEDS IN PHARMACY Allergies Coded Allergies: Acetaminophen (enlarged liver 11/11/16) Physical Exam Vital Signs / I&Os Vital Signs Date Time Temp Pulse Resp B/P Pulse O2 O2 Flow FiO2 Ox Delivery Rate 11/14 0627 98.4 70 18 122/59 94 Nasal 3.0 Cannula 11/14 0231 98.1 64 24 135/58 95 Nasal Cannula 11/13 2212 98.1 83 22 124/60 98 Nasal Cannula 11/13 2011 3.0 11/13 1999 Nasal 3.0 Cannula 11/13 1853 98.1 74 20 122/59 97 Nasal 3.0 Cannula 11/13 1443 97.5 67 20 127/54 96 Nasal 3.0 Cannula 11/13 0936 3.0 11/13 0853 Nasal 3.0 Cannula I&O 11/14 0000 11/13 1600 11/13 0800 Intake Total 120 720 900 Output Total 200 1450 Balance -80 720 -550 General Appearance Alert, Oriented X3, Cooperative, No acute distress Lungs Clear to auscultation Cardiovascular Normal S1 and S2, Irregular rhythm Abdomen Normal bowel sounds, Soft, No tenderness Extremities No cyanosis, No clubbing, edema unchanged Neurological Cranial nerves intact, No lateralizing signs Psych/Mental Status Mental status normal, Mood normal LAB Results Laboratory Tests 11/14 0548 Chemistry Plasma Sodium (136 - 145 mmol/L) 145 Plasma Potassium (3.5 - 5.1 mmol/L) 3.5 Plasma Chloride (98 - 107 mmol/L) 101 CO2 (Enzymatic) (21 - 32 mmol/L) 41 BUN (7 - 18 mg/dL) 13 Creatinine (0.6 - 1.3 mg/dL) 1.2 Est GFR ( Amer) (mL/min) >60 Est GFR (Non-Af Amer) (mL/min) 49.57 Glucose (70 - 110 mg/dL) 106 Plasma Calcium (8.5 - 10.1 mg/dL) 8.6 Plasma Magnesium (1.8 - 2.4 mg/dL) 1.6 Hematology WBC (4.5 - 11.5 K/uL) 6.7 RBC (4.00 - 5.20 M/uL) 4.05 Hgb (12.0 - 16.0 gm/dL) 10.2 Hct (36.0 - 46.0 %) 32.6 MCV (80 - 100 fL) 80 MCH (26 - 34 pg) 25 RDW (11.6 - 14.8 %) 18.6 Neut % (Auto) (50 - 75 %) 66.6 Lymph % (Auto) (25 - 40 %) 19.3 [place] % (Auto) (3 - 14 %) 7.7 Eos % (Auto) (0 - 4 %) 6.0 Baso % (Auto) (0 - 2 %) 0.4 Plt Count, EDTA (150 - 400 K/uL) 164 PUBS MCHC (31 - 37 g/dL) 31 Imaging Echocardiogram IMPRESSION: LV EF 55% LVH Biatrial enlargement Aortic sclerosis no stenosis 2+ MR To 3+ TR with RVSP 67 mmHg RV RVE Dictated by: FIGUEROA FLORES MD D: JAMES;11/12/16 3362 Assessment and Plan Problem List 1. Chest pain Plan -Improved -Continue PPI -Does not appear cardiac in origin -Outpatient follow-up with Dr. Carreno. 2. Morbid obesity due to excess calories Plan -Encourage weight reduction program -Follow up with Dr. Carreno 3. CHF exacerbation Plan -Echocardiogram shows normal left ventricular ejection fraction. Findings of pulmonary hypertension. -No clear findings of left ventricular dysfunction/CHF -Stable, outpatient follow up with Dr. Carreno 4. Opiate dependence Plan -Continue outpatient medical regimen -Follow with Dr. Carreno 5. Chronic anticoagulation Status Chronic Onset Date Unknown Plan -INR therapeutic at 2.5 -Decrease Coumadin to 2.5 mg by mouth daily -Outpatient follow-up with Dr. Carreno 6. Atrial fibrillation Plan -Stable -Continue present therapy -Continue present anticoagulation -Outpatient follow-up with Dr. Carreno Current status: Fair, improved Anticipated discharge date: Anticipated discharge in a.m. Anticipated discharge placement: Home Patient care time: Time spent in chart review, patient interview, physical exam, CPOE, and care documentation: 25 minutes Visit to patient today: 1 Complexity of care: Moderate E&M Codes Rounding: Inpt-Moderate/[id number]
[2016-11-14 14:59] VITALS: BP 121/67
[2016-11-14 18:15] VITALS: BP 140/66
[2016-11-14 23:24] VITALS: BP 134/66
[2016-11-15 02:54] VITALS: BP 125/53
[2016-11-15 06:34] VITALS: BP 120/58
--- NOTE | 2016-11-15 07:34 | Discharge Summary ---
Discharge Summary Report Admit Date 11/12/16 Discharge Date 11/15/16 Admission Diagnosis 1. Chest Pain 2. CHF 3. Morbid obesity 4. Atrial fibrillation 5. Chronic anticoagulation 6. Narcotic dependence Discharge Diagnosis 1. Chest Pain-ACS ruled out 2. CHF 3. Morbid obesity 4. Atrial fibrillation 5. Chronic anticoagulation 6. Narcotic dependence Brief History The patient is a 56-year-old white female with a significant past medical history of morbid obesity, atrial fibrillation, chronic anticoagulation, narcotic dependence, DVT, generalized anxiety disorder, who presented to [facility] emergency room on the day of admission secondary to complaints of chest discomfort. Evaluation at [facility] emergency room was consistent with chest pain rule out ACS, CHF, chronic atrial fibrillation, chronic anticoagulation. Secondary to the above, the patient was admitted for further evaluation and treatment by Dr. Brian Donald. For other history present illness, past medical history, family history, social history, review of systems, and admission physical examination please see the patient's history and physical examination and ER visit note in the patient's medical record. Hospital Course The following problems and their management were noted during the patient's hospitalization: 1. Chest Pain-ACS ruled out The patient was admitted with findings of chest pain. She underwent serial EKG/ cardiac enzymes which were inconsistent with ischemia/infarction. Her chest pain responded to the use of GI cocktail/PPI. It was felt most likely secondary to GI origin. She was discharged on Protonix 40 mg by mouth daily. She will follow up with her PCP this week. 2. CHF The patient has a history of CHF. Echocardiogram showed normal left ventricular function. The patient did exhibit elevated pulmonary artery pressures. No evidence of CHF during the patient's hospital stay. BNP was elevated but improved at discharge. 3. Morbid obesity The patient had findings of morbid obesity. She was encouraged to follow a weight reduction program. Recommend possible surgical intervention per her PCP/ bariatric surgery. 4. Atrial fibrillation Stable. No further evaluation during the patient's hospitalization. Echocardiogram as noted. 5. Chronic anticoagulation The patient has a history of chronic anticoagulation. INR 2.5 at discharge. Outpatient follow-up with PCP. See discharge instructions 6. Narcotic dependence The patient has a history of narcotic dependence. Continue Suboxone on preadmission schedule General Appearance Alert, Oriented X3, Cooperative, No acute distress Lungs Clear to auscultation Cardiovascular Normal S1, Normal S2, rate controlled Abdomen Normal bowel sounds, Soft, No tenderness Neurological Grossly normal Psych/Mental Status Mental status NL, Mood NL Lab/Imaging Echocardiogram IMPRESSION: LV EF 55% LVH Biatrial enlargement Aortic sclerosis no stenosis 2+ MR To 3+ TR with RVSP 67 mmHg RV RVE Dictated by: FIGUEROA FLORES MD D: JAMES;11/12/16 2150 Discharge Instructions/Meds For other recommendations regarding discharge diet, activity, followup, and discharge medications please see the patient's discharge instructions. Discharge condition: Fair, improved Greater than 30 min. was spent in the patient's discharge preparation including discharge interview and physical examination, progress note, discharge instructions, and discharge summary The patient was interviewed and examined on the day of discharge. E&M Codes Discharge: Inpt >30 min spent/[id number]
--- NOTE | 2016-11-15 07:34 | Discharge Summary ---
Discharge Summary Report Admit Date 11/12/16 Discharge Date 11/15/16 Admission Diagnosis 1. Chest Pain 2. CHF 3. Morbid obesity 4. Atrial fibrillation 5. Chronic anticoagulation 6. Narcotic dependence Discharge Diagnosis 1. Chest Pain-ACS ruled out 2. CHF 3. Morbid obesity 4. Atrial fibrillation 5. Chronic anticoagulation 6. Narcotic dependence Brief History The patient is a 56-year-old white female with a significant past medical history of morbid obesity, atrial fibrillation, chronic anticoagulation, narcotic dependence, DVT, generalized anxiety disorder, who presented to [facility] emergency room on the day of admission secondary to complaints of chest discomfort. Evaluation at [facility] emergency room was consistent with chest pain rule out ACS, CHF, chronic atrial fibrillation, chronic anticoagulation. Secondary to the above, the patient was admitted for further evaluation and treatment by Dr. Brian Donald. For other history present illness, past medical history, family history, social history, review of systems, and admission physical examination please see the patient's history and physical examination and ER visit note in the patient's medical record. Hospital Course The following problems and their management were noted during the patient's hospitalization: 1. Chest Pain-ACS ruled out The patient was admitted with findings of chest pain. She underwent serial EKG/ cardiac enzymes which were inconsistent with ischemia/infarction. Her chest pain responded to the use of GI cocktail/PPI. It was felt most likely secondary to GI origin. She was discharged on Protonix 40 mg by mouth daily. She will follow up with her PCP this week. 2. CHF The patient has a history of CHF. Echocardiogram showed normal left ventricular function. The patient did exhibit elevated pulmonary artery pressures. No evidence of CHF during the patient's hospital stay. BNP was elevated but improved at discharge. 3. Morbid obesity The patient had findings of morbid obesity. She was encouraged to follow a weight reduction program. Recommend possible surgical intervention per her PCP/ bariatric surgery. 4. Atrial fibrillation Stable. No further evaluation during the patient's hospitalization. Echocardiogram as noted. 5. Chronic anticoagulation The patient has a history of chronic anticoagulation. INR 2.5 at discharge. Outpatient follow-up with PCP. See discharge instructions 6. Narcotic dependence The patient has a history of narcotic dependence. Continue Suboxone on preadmission schedule General Appearance Alert, Oriented X3, Cooperative, No acute distress Lungs Clear to auscultation Cardiovascular Normal S1, Normal S2, rate controlled Abdomen Normal bowel sounds, Soft, No tenderness Neurological Grossly normal Psych/Mental Status Mental status NL, Mood NL Lab/Imaging Echocardiogram IMPRESSION: LV EF 55% LVH Biatrial enlargement Aortic sclerosis no stenosis 2+ MR To 3+ TR with RVSP 67 mmHg RV RVE Dictated by: FIGUEROA FLORES MD D: JAMES;11/12/16 9317 Discharge Instructions/Meds For other recommendations regarding discharge diet, activity, followup, and discharge medications please see the patient's discharge instructions. Discharge condition: Fair, improved Greater than 30 min. was spent in the patient's discharge preparation including discharge interview and physical examination, progress note, discharge instructions, and discharge summary The patient was interviewed and examined on the day of discharge. E&M Codes Discharge: Inpt >30 min spent/[id number]
[2016-11-15] MEDS ORDERED: PROTONIX40 MG PO (10:38)
[2016-11-15] MEDS ORDERED: MICRO-K 10 EQU10 MEQ PO (10:38)
[2016-11-15] MEDS ORDERED: MAG6464 MG PO (10:38)
[2016-11-15] MEDS ORDERED: ADVAIR DISKU1 IN (10:38)
[2016-11-15] MEDS ORDERED: O2 IN (10:41)
--- NOTE | 2016-11-15 10:41 | Provider's Discharge Care Plan ---
Problem, Goal, Plan Problem List 1. Chest pain Goals: Improve disease control, Prevent disease progress Instructions: Follow up as directed, Take meds as directed, Avoid fatty foods. 2. Dyspepsia Goals: Improve disease control, Prevent disease progress Instructions: Follow up as directed, Take meds as directed 3. COPD (chronic obstructive pulmonary disease) Goals: Improve disease control, Prevent disease progress Instructions: Follow up as directed, Take meds as directed 4. Chronic anticoagulation Goals: Improve disease control, Improved health/wellness, Prevent disease progress Instructions: Follow up as directed, Take meds as directed, Follow-up for repeat INR in [address] Carreno
[2016-11-15] MEDS ORDERED: BAYER ASPIRIN E81 M1 PO (10:43)
== END 2016-11-15 13:01 | disposition home health service (06) | DRG 292 ==
LOC: ED SRH 14:52 → TRANS SRH 17:31 → ACUTE2 SRH 19:31
PROVIDERS: ADMIT Emergency Medicine
PROC: 3E0234Z Introduction of Serum, Toxoid and Vaccine into Muscle, Percutaneous Approach (ICD-10-PCS; principal; 2016-11-12)
DX: I11.0 Hypertensive heart disease with heart failure (principal); I50.23 Acute on chronic systolic (congestive) heart failure; R09.02 Hypoxemia; R07.9 Chest pain, unspecified; F11.20 Opioid dependence, uncomplicated; E66.2 Morbid (severe) obesity with alveolar hypoventilation; Z68.44 Body mass index [BMI] 60.0-69.9, adult; Z23 Encounter for immunization; I48.2 Chronic atrial fibrillation; Z79.01 Long term (current) use of anticoagulants; F41.1 Generalized anxiety disorder
CPT/HCPCS: 29230; 29257; 81021; 84350; 84351; 90004; 90047; 90074; 90100; 90616; 91320; 91400; 91556; 92235; 92530; 92610; 92690; 92720; 92760; 92761; 92762; 92763; 92764; 92765; 92766; 92767; 93140; 94060; 95059

== ENCOUNTER 2016-12-16 17:25 | Emergency (ER) | payer OTHER ==
[~2016-12-16 17:25] MED LIST changes: +ADVAIR DISKU1 IN; +ALDACTONE25 MG PO; +BAYER ASPIRIN E81 M1 PO; +BUSPIRONE HCL10 MG PO; +COUMADIN3 MG PO; +MAG6464 MG PO; +MICRO-K 10 EQU10 MEQ PO; +O2 IN; +SUBOXONE1 MI1 SL; +VISTARIL25 MG PO
--- NOTE | 2016-12-16 19:42 | ED ORDER SUMMARY ---
..... Patient: PUJA TREJO OrderSheet [facility] VisitID: [id number] [address] [place] [address] 56y, F Registration Date/Time: 12/16/2016 ORDER SHEET Weight: 188 kg (estimated) Allergies: No Known Drug Allergy GENERAL ORDERS: Pharmacovigilance Safety Expert (Continuous) (Syncope) (17:50 12/16/2016 Dillon Drew verbal order read back to Selma MCHUGH) (17:51 Dillon R.N.) Pulse oximeter (17:51 12/16/2016 Dillon Man. verbal order read back to Selma MCHUGH) (17:57 Rosy Rodriguez.N.) EKG - ER Stat (17:51 12/16/2016 Dillon Drew verbal order read back to Selma MCHUGH) (Ack 17:53 OHernandez) (18:19 Rosy R.N.) Chest 1V Urgent (19:00 12/16/2016 Selma MCHUGH) (19:21 Keira R.N.) MEDICATION ORDERS: IV FLUIDS: IV Saline Lock (17:51 12/16/2016 Dillon Drew verbal order read back to Selma MCHUGH) (17:51 Dillon R.N.) Dilaudid IV 1 mg (HIGH ALERT MEDICATION, NOW) (18:00 12/16/2016 Selma MCHUGH) (18:27 Eddie R.N.) Toradol IV 30 mg (NOW) (18:00 12/16/2016 Selma MCHUGH) (18:28 Eddie R.N.) Zofran IV 8 mg (NOW) (18:01 12/16/2016 Selma MCHUGH) (18:29 Eddie R.N.) ORDER SHEET NOTES: [Electronically signed by Jennifer Mark R.N. (21:30 12/16/2016)] [Electronically signed by Jennifer Mark R.N. (21:31 12/16/2016)] [Electronically signed by Alesia Lizama MD (11:50 12/20/2016)] [Electronically locked/signed by Jennifer Mark R.N. (21:30 12/16/2016)Amarilis
--- NOTE | 2016-12-16 19:42 | ED ORDER SUMMARY ---
..... Patient: PUJA TREJO OrderSheet [facility] VisitID: [id number] [address] [place] [address] 56y, F Registration Date/Time: 12/16/2016 ORDER SHEET Weight: 188 kg (estimated) Allergies: No Known Drug Allergy GENERAL ORDERS: Twister Tender (Continuous) (Syncope) (17:50 12/16/2016 Dillon Drew verbal order read back to Selma MCHUGH) (17:51 Dillon R.N.) Pulse oximeter (17:51 12/16/2016 Dillon Man. verbal order read back to Selma MCHUGH) (17:57 Rosy Rodriguez.N.) EKG - ER Stat (17:51 12/16/2016 Dillon Drew verbal order read back to Selma MCHUGH) (Ack 17:53 OHernandez) (18:19 Rosy R.N.) Chest 1V Urgent (19:00 12/16/2016 Selma MCHUGH) (19:21 Keira R.N.) MEDICATION ORDERS: IV FLUIDS: IV Saline Lock (17:51 12/16/2016 Dillon Drew verbal order read back to Selma MCHUGH) (17:51 Dillon R.N.) Dilaudid IV 1 mg (HIGH ALERT MEDICATION, NOW) (18:00 12/16/2016 Selma MCHUGH) (18:27 Eddie R.N.) Toradol IV 30 mg (NOW) (18:00 12/16/2016 Selma MCHUGH) (18:28 Eddie R.N.) Zofran IV 8 mg (NOW) (18:01 12/16/2016 Selma MCHUGH) (18:29 Eddie R.N.) ORDER SHEET NOTES: [Electronically signed by Jennifer Mark R.N. (21:30 12/16/2016)] [Electronically signed by Jennifer Mark R.N. (21:31 12/16/2016)] [Electronically signed by Alesia Lizama MD (11:50 12/20/2016)] [Electronically locked/signed by Jennifer Mark R.N. (21:30 12/16/2016)Amarilis
--- NOTE | 2016-12-16 19:42 | ED CLINICAL REPORT ---
Clinical Report - Physicians/Mid Levels [facility] [address] [place] [address] 12/16/2016 17:28 Patient: PUJA TREJO Time Seen: 17:37. Arrived- By ambulance. Historian- patient and EMS personnel. HISTORY OF PRESENT ILLNESS Chief Complaint: BACK PAIN and CHRONIC BACK PAIN. It is described as being moderate in degree and in the area of the left side of the lower lumbar spine and right side of the lower lumbar spine. The quality is noted to be "pain" and similar to prior episodes. No radiation. Modifying factors. Not worsened by anything. Not relieved by anything. Onset was just prior to arrival and it is still present but is better now. No bladder dysfunction, bowel dysfunction, sensory loss or motor loss. Additional history - PT states that the pain was intense, and states pt passed out briefly. Pt and state this is a common occurrence for the pt (syncope). Patient denies an injury. No other injury. Similar symptoms previously: Many times. Recent medical care: Not recently seen/assessed. REVIEW OF SYSTEMS No fever, chills, eye discomfort, headache or sore throat. No difficulty breathing, chest pain, skin rash, abdominal pain or nausea. No vomiting, diarrhea, black stools, difficulty with urination or urinary frequency. No hematuria or bloody stools. The patient has had a cough. All systems otherwise negative, except as recorded above. PAST HISTORY Problems: Congestive Heart Failure. COPD - Chronic Obstructive Pulmonary Disease. Chronic Venous Insufficiency. Pedal Edema. Hypertension. Hematuria. Narcotic Dependence. Atrial Fibrillation. DVT - Deep Venous Thrombosis. Irritable Bowel Syndrome. Immunizations. Anxiety Reaction. Morbid obesity. Sialoadenitis. Dental Pain. Additional Surgeries: Cholecystectomy. . Left ankle X3. Leg surgery. Tonsillectomy. Medications: BusPIRone HCl Oral (Tablet 10 mg) 1 tablet, 2x a day. Lopressor Oral (Tablet 50 mg) 1 tablet, 2x a day. Pantoprazole Sodium Oral (Tablet Delayed Release 40 mg) 1 tablet, daily. Spironolactone Oral (Tablet 25 mg) 1 tablet, daily. Suboxone Sublingual (Film 8-2 mg) 1, DAILY. Warfarin Sodium Oral (Tablet 3 mg) 1-1/2 tablets, daily. Allergies: No Known Drug Allergy. SOCIAL HISTORY Never smoker. No alcohol use or drug use. ADDITIONAL NOTES The nursing notes have been reviewed. PHYSICAL EXAM Vital Signs: 12/16/2016 19:21 BP: 121/77. HR: 116. RR: 18. O2 saturation: 96%. Temp: 100.1 F. Have been reviewed. Appearance: Alert. No acute distress. HEENT: Normal external inspection. Eyes: Pupils equal, round and reactive to light. Neck: Normal inspection. Neck nontender. Painless ROM. CVS: Normal heart rate and rhythm. Heart sounds normal. Pulses normal. Respiratory: No respiratory distress. Breath sounds normal. Abdomen: Soft and nontender. Severely obese. Back: Limited ROM in the back- (secondary to severe obesity). No vertebral point tenderness or soft tissue tenderness. Skin: Skin warm and dry. Normal skin color. No rash. Normal skin turgor. Extremities: Extremities nontender. Neuro: Oriented X 3. Mood/affect normal. No motor deficit. No sensory deficit. LABS, X-RAYS, AND EKG EKG: EKG time: (182). No acute ischemia. Rate: 113. Atrial fibrillation. Abnormal P waves. Abnormal CUATE. Decreased QRS voltage. Normal ST and T waves, QT and QTc. Prior EKG unavailable. The study has been interpreted contemporaneously by me. The study has been independently viewed by me. The EKG appears to be a good tracing. Rhythm Strip #1: Time: (1736). Rate= 92. Atrial fibrillation. Narrow QRS complexes. Irregularly irregular rhythm. No ectopy. Conduction normal. Normal ST segments and T waves. The study was interpreted by me. Chest X-ray: No acute disease. Normal lung markings present. Normal heart size. Mediastinum normal. Great vessels normal. Soft tissues normal. No infiltrate. No fracture. No bony lesion present. Views: AP (portable). Technique: good. The X-rays were independently viewed by me, interpreted by the radiologist and contemporaneously by me and discussed with the radiologist. Prior films were not available for comparison. Pulse Oximetry: 12/16/2016 19:21 O2 saturation: 96%. (FIO2 - room air). Interpretation: normal. PROGRESS AND PROCEDURES Course of Care: PT was worked up with an EKG and chest x-ray, and no emergent condition was identified. Patient and spouse counseled in person regarding the patient's stable condition, test results, diagnosis and need for follow-up. Concerns were addressed. Old medical records reviewed. Disposition: Discharged. Condition: stable and improved. CLINICAL IMPRESSION Chronic nontraumatic lumbar back pain. (with acute exacerbation). No radiculopathy, sciatica or neurological deficit. INSTRUCTIONS Warnings: GENERAL WARNINGS: Return or contact your physician immediately if your condition worsens or changes unexpectedly, if not improving as expected, or if other problems arise. Your Current Medications: CONTINUE TAKING THE FOLLOWING MEDICATIONS: BusPIRone HCl Oral : Tablet 10 mg, 1 tablet 2x a day. Lopressor Oral : Tablet 50 mg, 1 tablet 2x a day. Pantoprazole Sodium Oral : Tablet Delayed Release 40 mg, 1 tablet daily. Spironolactone Oral : Tablet 25 mg, 1 tablet daily. Suboxone Sublingual : Film 8-2 mg, 1 DAILY. Warfarin Sodium Oral : Tablet 3 mg, 1-1/2 tablets daily. Prescription Medications: Hydrocodone/APAP 5mg / 325mg: take 1-2 orally every 4 hours as needed for pain. Dispense twenty-five (25). No refill. Follow-up: Follow up with your doctor Tuesday as scheduled. Understanding of the discharge instructions verbalized by patient. (Electronically signed by Alesia Lizama MD 12/20/2016 11:50)
--- NOTE | 2016-12-16 19:42 | ED NURSING NOTES ---
Clinical Report - Nurses [facility] [place] [address] 12/16/2016 17:28 Patient: PUJA TREJO TRIAGE Triage time 17:25 Dec 16 2016. Chief Complaint: BACK PAIN. RAMSES COMA SCORE: [place] Coma Scale: 15- eyes open spontaneously (4); best verbal response- oriented x 4 (5); best motor response- obeys commands (6). --17:46 Charlie Snell R.N. Height/Length: 62 inches Per Patient. --17:44 Charlie Snell R.N.. Weight: 188 kg estimated. BMI: 75.9. --17:44 Charlie Snell R.N. Medications BusPIRone HCl Oral (Tablet 10 mg) 1 tablet, 2x a day. Lopressor Oral (Tablet 50 mg) 1 tablet, 2x a day. Pantoprazole Sodium Oral (Tablet Delayed Release 40 mg) 1 tablet, daily. Spironolactone Oral (Tablet 25 mg) 1 tablet, daily. Suboxone Sublingual (Film 8-2 mg) 1, DAILY. Warfarin Sodium Oral (Tablet 3 mg) 1-1/2 tablets, daily. --17:35 Charlie Snell R.N. Allergies No Known Drug Allergy. --17:35 Charlie Snell R.N. History Arrived by EMS. Historian: patient. Unaccompanied. Primary physician (Ev). ( Back Pain starting 4 hours ago which, "came on suddenly,' followed by a 10 second syncopal episode after Medics arrived. Pt states that she was sitting in her bed and felt as though she needed to stretch and that was it.). This started today. Onset. (about 4 ago). No history of recent trauma. Treatment INDUSTRIAL ENGINEERING TECHNICIAN: None. --17:46 Charlie Snell R.N. PROBLEMS: Dyspnea. Nausea. Diarrhea. Congestive Heart Failure. COPD - Chronic Obstructive Pulmonary Disease. Chronic Venous Insufficiency. Pedal Edema. Hypertension. Cellulitis. Hematuria. Chest Pain. Narcotic Dependence. Atrial Fibrillation. Obesity. Contusion. DVT/PE Risk Factors. DVT - Deep Venous Thrombosis. Abdominal Pain. Irritable Bowel Syndrome. Immunizations. Anxiety Reaction. Morbid obesity. Sialoadenitis. Dental Pain. --17:43 Charlie Snell R.N. ADDITIONAL SURGERIES: Cholecystectomy. . Left ankle X3. Leg surgery. Tonsillectomy. --17:43 Charlie Snell R.N. NURSING PROGRESS NOTES 17:41 12/16/2016 Site #1 started via IV in the left upper arm with an 22g angiocath, with aseptic technique and good blood return; one attempt. Blood drawn: rainbow set. Labeled in the presence of the patient and sent to the lab. Saline lock flushed with 10 mL saline. --17:51 Charlie Snell R.N. EKG time: (1820). EKG was ordered, performed by a tech and shown to the ED physician. --18:27 Yisel Leal 18:12 12/16/2016 Dilaudid (HYDROmorphone HCl PF) IVP 1 mg given over 1 hour(s) via site #1. Allergies verified, confirmed 5 rights and sedative warning given to the patient. IV patency established. IV site checked: no pain, redness, or swelling. IV flushed thoroughly pre- and post-medication administration. IVP given by RN. --18:27 Ann Lomeli R.N. 18:18 12/16/2016 Toradol IVP 30 mg given over 1 minute(s) via site #1. Allergies verified and confirmed 5 rights. IV patency established. IV site checked: no pain, redness, or swelling. IV flushed thoroughly pre- and post-medication administration. IVP given by RN. --18:28 Ann Lomeli R.N. 18:18 12/16/2016 Zofran (Ondansetron HCl) IVP 8 mg given over 1 minute(s) via site #1. Allergies verified and confirmed 5 rights. IV patency established. IV site checked: no pain, redness, or swelling. IV flushed thoroughly pre- and post-medication administration. IVP given by RN. --18:29 Ann Lomeli R.N. Cardiac rhythm: atrial fibrillation. --18:58 Javed Soares R.N. 19:00 12/16/16. Care transferred and report given (Jennifer). --19:00 Ann Lomeli R.N. 19:12/16/16. Cardiac rhythm: atrial fibrillation. Portable chest x-ray ordered, performed and shown to the ED physician. The patient is calm and resting quietly. Overall patient status is the same- she states feels the same. --19:21 Jennifer Mark R.N. 19:21 12/16/16. BP: 121/77. HR: 116. RR: 18. O2 saturation: 96%. Temp: 100.1 F. Pain level now 8/10. --19:21 Jennifer Mark R.N. DISPOSITION / DISCHARGE 20:23 12/16/2016 Site #1 removed upon discharge. Catheter intact. Bandaid applied. --20:23 Jennifer Mark R.N. 20:24 12/16/16. Cardiac rhythm: atrial fibrillation. Condition at departure: improved and stable. The goals identified in the patient's plan of care were met. No learning barriers present. Patient verbalized understanding. Written instructions provided in Vietnamese. The patient was discharged home and accompanied by EMS. She left the Emergency Department via ambulance and on a stretcher. Driving (EMS). --20:25 Jennifer Mark R.N. 20:24 12/16/16. BP: 100/64. HR: 112. RR: 20. O2 saturation: 96%. Temp: 100.0 F. Pain level now 5/10. --20:25 Jennifer Mark R.N. Departure time: 21:30 Dec 16 2016. --21:30 Jennifer Mark R.N. 21:12/16/16. --21:31 Jennifer Mark R.N. 20:12/16/16. BP: 100/64. HR: 112. RR: 20. O2 saturation: 96%. Temp: 100.0 F. Pain level now 5/10. 19:19 12/16/16. BP: 121/77. HR: 116. RR: 18. O2 saturation: 96%. Temp: 100.1 F. Pain level now 06/02. --21:31 Jennifer Mark R.N. Locked/Released at 12/16/2016 21:31 by Jennifer Mark R.N.
--- NOTE | 2016-12-16 21:02 | DIAGNOSTIC IMAGING REPORT ---
PROCEDURE: XR CHEST 1 VIEW INDICATION: COUGH TECHNIQUE: Portable AP view 07:12 p.m. COMPARISON: Chest x-ray 11/11/2016 FINDINGS: Mild cardiomegaly with mildly improved point vascular congestion and/or edema. Mild left mid lung plate-like atelectasis. Bony thorax is unremarkable. IMPRESSION: 1. Mildly improved CHF and pulmonary edema.
--- NOTE | 2016-12-20 11:51 | ED DISCHARGE INSTRUCTIONS ---
Patient: PUJA TREJO General Instructions [facility] VisitID: [id number] [address] [place] [address] 56y, F Registration Date/Time: 12/16/2016 Chronic nontraumatic lumbar back pain. (with acute exacerbation). No radiculopathy, sciatica or neurological deficit. INSTRUCTIONS Warnings: GENERAL WARNINGS: Return or contact your physician immediately if your condition worsens or changes unexpectedly, if not improving as expected, or if other problems arise. Your Current Medications: CONTINUE TAKING THE FOLLOWING MEDICATIONS: BusPIRone HCl Oral : Tablet 10 mg, 1 tablet 2x a day. Lopressor Oral : Tablet 50 mg, 1 tablet 2x a day. Pantoprazole Sodium Oral : Tablet Delayed Release 40 mg, 1 tablet daily. Spironolactone Oral : Tablet 25 mg, 1 tablet daily. Suboxone Sublingual : Film 8-2 mg, 1 DAILY. Warfarin Sodium Oral : Tablet 3 mg, 1-1/2 tablets daily. Prescription Medications: Hydrocodone/APAP 5mg / 325mg: take 1-2 orally every 4 hours as needed for pain. Dispense twenty-five (25). No refill. Follow-up: Follow up with your doctor Tuesday as scheduled. Understanding of the discharge instructions verbalized by patient. ADDITIONAL INFORMATION Back Spasm [No Trauma] Spasm of the back muscles can occur after a sudden forceful twisting or bending force (such as in a car accident), after a simple awkward movement, or after lifting something heavy with poor body positioning. In either case, muscle spasm is often present and adds to the pain.Sleeping in an awkward position or on a poor quality mattress can also cause this. Some persons respond to emotional stress by tensing the muscles of their back. The treatment described below will usually help the pain to go away in 5-7 days. Pain that continues may require further evaluation or other types of treatment such as physical therapy. Unless you had a physical injury (for example, a car accident or fall), x-rays are usually not ordered for the initial evaluation of back pain. If pain continues and does not respond to medical treatment, x-rays and other tests may be performed at a later time. Home Care: You may need to stay in bed the first few days. But, as soon as possible, begin sitting or walking to avoid problems with prolonged bed rest (muscle weakness, worsening back stiffness and pain, blood clots in the legs). When in bed, try to find a position of comfort. A firm mattress is best. Try lying flat on your back with pillows under your knees. You can also try lying on your side with your knees bent up toward your chest and a pillow between your knees. Avoid prolonged sitting. This puts more stress on the lower back than standing or walking. Some persons find relief with heat (hot shower, hot bath, or heating pad) and massage, while others prefer cold packs (crushed or cubed ice in a plastic bag, wrapped in a towel). Try both and use the method that feels best for 20 minutes several times a day. You may use acetaminophen (Tylenol) or ibuprofen (Motrin, Advil) to control pain, unless another pain medicine was prescribed. [NOTE: If you have chronic liver or kidney disease or ever had a stomach ulcer or GI bleeding, talk with your doctor before using these medicines.] Gentle stretching will help your back heal faster. Perform this simple routine 2-3 times a day until your back is feeling better. LOW BACK STRETCH Lie on your back with your knees bent and both feet on the ground. Slowly raise your left knee to your chest as you flatten your lower back against the floor. Hold for 5 seconds. Relax and repeat the exercise with your right knee. Do 10 of these exercises for each leg. Repeat, hugging both knees to your chest at the same time. Be aware of safe lifting methods and do not lift anything over 15 pounds until all the pain is gone. Follow Up with your doctor or this facility if your symptoms do not start to improve after one week. Physical therapy or further tests may be needed. [NOTE: If x-rays were taken, they will be reviewed by a radiologist. You will be notified of any new findings that may affect your care.] Return Promptly or contact your doctor if any of the following occurs: Pain becomes worse or spreads to your legs Weakness or numbness in one or both legs Loss of bowel or bladder control Numbness in the groin or genital area Unexplained fever over 100.4F (38.0C) Burning or pain when passing urine You have been given the following additional information: Back Spasm, No Trauma (Electronically signed by Alesia Lizama MD 12/20/2016 11:50)
--- NOTE | 2016-12-20 11:51 | ED MED RECONCILIATION SUMMARY ---
Patient: PUJA TREJO Medication Reconciliation Report [facility] VisitID: [id number] [address] [place] [address] 56y, F Registration Date/Time: 12/16/2016 Weight: 188 kg Height/Length: 62 in. BMI: 75.9 ALLERGIES: No Known Drug Allergy The patient's Home Medications are listed below: CONTINUE TAKING THE FOLLOWING MEDICATIONS: BusPIRone HCl Oral (10 mg) 1 tablet, 2x a day Lopressor Oral (50 mg) 1 tablet, 2x a day Pantoprazole Sodium Oral (40 mg) 1 tablet, daily Spironolactone Oral (25 mg) 1 tablet, daily Suboxone Sublingual (8-2 mg) 1, DAILY Warfarin Sodium Oral (3 mg) 1-1/2 tablets, daily The source(s) of the original Home Medication information: Not obtained. The following Medications were given to the patient in the Emergency Department: Dilaudid [IVP] IVP 1 mg, administered: 12/16/2016 6:12:00 PM Toradol [IVP] IVP 30 mg, administered: 12/16/2016 6:18:00 PM Zofran [IVP] IVP 8 mg, administered: 12/16/2016 6:18:00 PM The following Medications were prescribed to the patient: Hydrocodone/APAP 5mg / 325mg: take 1-2 orally every 4 hours as needed for pain. Dispense twenty-five (25). No refill. -- Alesia Lizama MD
--- NOTE | 2016-12-20 11:51 | ED MAR SUMMARY ---
..... Medication Administration Record [facility] [address] [place] [address] Patient: PUJA TREJO Visit ID: [id number] 56y, F Weight: 188.0 kg Height/Length: 62 in BMI: 75.9 ALLERGIES: No Known Drug Allergy Given 18:12 12/16/2016 Ann Lomeli R.N. Medication Administered: DILAUDID [IVP] (HYDROMORPHONE HCL PF), Dose: 1 mg IVP over 1 hour(s), Site: #1 left upper arm. Medication Ordered: Dilaudid IV 1 mg (HIGH ALERT MEDICATION, NOW). Given 18:18 12/16/2016 Ann Lomeli R.N. Medication Administered: TORADOL [IVP], Dose: 30 mg IVP over 1 minute(s), Site: #1 left upper arm. Medication Ordered: Toradol IV 30 mg (NOW). Given 18:18 12/16/2016 Ann Lomeli R.N. Medication Administered: ZOFRAN [IVP] (ONDANSETRON HCL), Dose: 8 mg IVP over 1 minute(s), Site: #1 left upper arm. Medication Ordered: Zofran IV 8 mg (NOW).
--- NOTE | 2016-12-20 11:51 | ED MED RECONCILIATION SUMMARY ---
Patient: PUJA TREJO Medication Reconciliation Report [facility] VisitID: [id number] [address] [place] [address] 56y, F Registration Date/Time: 12/16/2016 Weight: 188 kg Height/Length: 62 in. BMI: 75.9 ALLERGIES: No Known Drug Allergy The patient's Home Medications are listed below: CONTINUE TAKING THE FOLLOWING MEDICATIONS: BusPIRone HCl Oral (10 mg) 1 tablet, 2x a day Lopressor Oral (50 mg) 1 tablet, 2x a day Pantoprazole Sodium Oral (40 mg) 1 tablet, daily Spironolactone Oral (25 mg) 1 tablet, daily Suboxone Sublingual (8-2 mg) 1, DAILY Warfarin Sodium Oral (3 mg) 1-1/2 tablets, daily The source(s) of the original Home Medication information: Not obtained. The following Medications were given to the patient in the Emergency Department: Dilaudid [IVP] IVP 1 mg, administered: 12/16/2016 6:12:00 PM Toradol [IVP] IVP 30 mg, administered: 12/16/2016 6:18:00 PM Zofran [IVP] IVP 8 mg, administered: 12/16/2016 6:18:00 PM The following Medications were prescribed to the patient: Hydrocodone/APAP 5mg / 325mg: take 1-2 orally every 4 hours as needed for pain. Dispense twenty-five (25). No refill. -- Alesia Lizama MD
--- NOTE | 2016-12-20 11:51 | ED MAR SUMMARY ---
..... Medication Administration Record [facility] [address] [place] [place] [address] Patient: PUJA TREJO Visit ID: [id number] 56y, F Weight: 188.0 kg Height/Length: 62 in BMI: 75.9 ALLERGIES: No Known Drug Allergy Given 18:12 12/16/2016 Ann Lomeli R.N. Medication Administered: DILAUDID [IVP] (HYDROMORPHONE HCL PF), Dose: 1 mg IVP over 1 hour(s), Site: #1 left upper arm. Medication Ordered: Dilaudid IV 1 mg (HIGH ALERT MEDICATION, NOW). Given 18:18 12/16/2016 Ann Lomeli R.N. Medication Administered: TORADOL [IVP], Dose: 30 mg IVP over 1 minute(s), Site: #1 left upper arm. Medication Ordered: Toradol IV 30 mg (NOW). Given 18:18 12/16/2016 Ann Lomeli R.N. Medication Administered: ZOFRAN [IVP] (ONDANSETRON HCL), Dose: 8 mg IVP over 1 minute(s), Site: #1 left upper arm. Medication Ordered: Zofran IV 8 mg (NOW).
== END 2016-12-16 21:30 | disposition home or self-care (01) ==
LOC: ED SRH 17:25
DX: M54.5 Low back pain (principal); G89.29 Other chronic pain; I10 Essential (primary) hypertension; I50.9 Heart failure, unspecified; I48.91 Unspecified atrial fibrillation; J44.9 Chronic obstructive pulmonary disease, unspecified; Z79.01 Long term (current) use of anticoagulants; Z79.899 Other long term (current) drug therapy

== ENCOUNTER 2016-12-17 17:04 | Emergency (ER) | payer OTHER ==
--- NOTE | 2016-12-17 19:22 | DIAGNOSTIC IMAGING REPORT ---
PROCEDURE: XR KNEE 4 VIEWS - LEFT INDICATION: PAIN IN JOINT TECHNIQUE: Four views. COMPARISON: None. FINDINGS: Severe degenerative changes of the medial and lateral compartments. Suboptimal lateral view but there appears to be degenerative changes of the patellofemoral compartment. No fracture or dislocation. IMPRESSION: 1. Severe degenerative changes.
--- NOTE | 2016-12-17 21:03 | DIAGNOSTIC IMAGING REPORT ---
PROCEDURE: XR CHEST 1 VIEW INDICATION: SHORTNESS OF BREATH TECHNIQUE: Portable AP view 08:41 p.m. COMPARISON: Chest x-ray 12/16/1969 FINDINGS: Stable mild to moderate cardiomegaly with continued improvement of pulmonary vascular congestion and pulmonary edema. Mild bibasilar plate-like atelectasis. Thorax is normal. IMPRESSION: 1. Continued improvement CHF and pulmonary edema 2. Mild bibasilar atelectasis
--- NOTE | 2016-12-18 04:45 | ED CLINICAL REPORT ---
Clinical Report - Physicians/Mid Levels [facility] [address] [place] [address] 12/17/2016 17:05 [id number] Time Seen: 17:23 Dec 17 2016. Arrived- By private vehicle. Historian- patient. HISTORY OF PRESENT ILLNESS Chief Complaint: LOWER EXTREMITY PAIN. Severity is described as being moderate. The quality is noted to be sharp, aching and "pain". This started today and is still present. Symptoms located in the area of the left knee. The patient has not had redness. No swelling, bladder dysfunction, bowel dysfunction, sensory loss or motor loss. She has had difficulty walking. Patient notes the possibility of an injury. Mechanism of injury- (Moving in bed to get out of bed and knee started to hurt.). Similar symptoms previously: None. Recent medical care: Not recently seen/assessed. REVIEW OF SYSTEMS No cough, chest pain, difficulty breathing, fever or skin rash. No neck pain, back pain, sore throat, abdominal pain or vomiting. No diarrhea. All systems otherwise negative, except as recorded above. PAST HISTORY Arthritis. Chronic back pain. Medications: Lasix Oral 40 mg, daily. BusPIRone HCl Oral (Tablet 10 mg) 1 tablet, 2x a day. Lopressor Oral (Tablet 50 mg) 1 tablet, 2x a day. Pantoprazole Sodium Oral (Tablet Delayed Release 40 mg) 1 tablet, daily. Warfarin Sodium Oral (Tablet 3 mg) 1-1/2 tablets, daily. Allergies: No Known Drug Allergy. SOCIAL HISTORY Never smoker. No alcohol use or drug use. ADDITIONAL NOTES The nursing notes have been reviewed. PHYSICAL EXAM Vital Signs: 12/17/2016 17:26 BP: 132/78. HR: 100. RR: 18. O2 saturation: 95%. Temp: 98.6 F. Pain level now: 9/10. Appearance: Alert. Patient in mild distress. Eyes: Eyes normal inspection. ENT: Pharynx normal. Neck: Normal inspection. CVS: Normal heart rate and rhythm. Heart sounds normal. Respiratory: No respiratory distress. Breath sounds normal. Abdomen: Soft and nontender. (OBESE). Skin: Skin intact. Skin warm. Large area of cellulitis with erythema and warmth to the abdomen and back. Extremities: Left knee: moderate tenderness located in the lateral joint line. Limited ROM secondary to pain (diminished flexion and extension). Neurovascular intact distally. No ligamentous laxity present. Bilateral severe pitting edema of the lower extremities involving both lower legs. Neuro: Oriented X 3. No motor deficit. No sensory deficit. LABS, X-RAYS, AND EKG Chest X-ray: (1. Continued improvement CHF and pulmonary edema 2. Mild bibasilar atelectasis). Views: AP. Technique: good. The X-rays were interpreted by the radiologist and discussed with the radiologist. Interpretation time: 2040. Chest X-ray #2: (R IJ in good placement. No pneumothorax). Views: AP. Technique: good. The X-rays were independently viewed by me and interpreted contemporaneously by me. Interpretation time: 03:09. Lt Knee X-ray: Degenerative joint disease. Views: AP, lateral and oblique. Technique: good. The X-rays were independently viewed by me and interpreted contemporaneously by me. Laboratory Tests: CBC w Diff: (NAPOLEON: 12/17/2016 22:10) ( MsgRcvd 12/17/2016 23:11) Final results Test Result Flag Units (Reference) WHITE BLOOD COUNT 1.9 L K/uL (4.5-11.5) RED BLOOD COUNT 3.94 L M/uL (4.00-5.20) HEMOGLOBIN 10.0 L gm/dL (12.0-16.0) HEMATOCRIT 31.2 L % (36.0-46.0) MEAN CELL VOLUME 79 L fL (80-100) MEAN CORPUSCULAR HGB 25 L pg (26-34) MEAN CORPUSCULAR HGB CONC 32 g/dL (31-37) RED CELL DISTRIBUTION WIDTH 17.3 H % (11.6-14.8) PLATELET COUNT 134 L K/uL (150-400) POLY % 26 L % (50-75) BAND % 54 H % (0-8) LYMPH 6 L % (25-40) MONO 10 % (3-14) EOSINOPHIL % 1 % (0-4) BASOPHIL % 0 % (0-2) METAMYELOCYTE % 2 H % (0-1) MYELOCYTE 1 % (0-1) OTHER CELL TYPE 0 PT with INR: (NAPOLEON: 12/17/2016 18:55) ( [facility] 12/17/2016 19:23) Final results Test Result Flag Units (Reference) INR 2.5 H (0.8-1.2) Low Intensity Therapy: INR 1.5-2.0 PT range 18.5-23.1Mod.Intensity Therapy: INR 2.0-3.0 PT range 23.1-31.5High Intensity Therapy: INR 2.5-3.5 PT range 27.4-35.5High Intensity Therapy 2: INR 3.0-4.0 PT range 31.5-39.3 [id number]: (NAPOLEON: 12/17/2016 22:10) ( [facility] 12/17/2016 23:09) Final results Test Result Flag Units (Reference) LACTIC ACID SEPSIS PROTOCOL 4.7 H mmol/L (0.4-2.0) CRITICAL RESULTS CALLEDCalled to ASNDIP IN ED 12/17/16 2308Were 2 patient identifiers used? YWas the result read back? Y [id number]: (NAPOLEON: 12/17/2016 22:10) ( [facility] 12/17/2016 23:03) Final results Test Result Flag Units (Reference) PROCALCITONIN 19.5 H ng/mL (0-0.5) PCT Concentration: Interpretation : Risk/option for action PCT <=0.5 ng/mL : Systemic : Low risk forinfection(sepsis): progression to severeis not likely. : systemic infection.Local bacterial : CAUTION-PCT levelsinfection is : below 0.5 ng/mL do notpossible. : exclude an infection,because localizedinfections (withoutsystemic signs) may beassociated with suchlow levels. If PCT ismeasured very earlyafter a bacterialchallenge (usually <6hours), these valuesmay still be low. Inthis case PCT shouldbe re-assessed 6-24hours later. PCT >0.5 and : Systemic infection: Moderate risk for<= 2 ng/mL : (sepsis) is : progression to severepossible, but : systemic infection.other conditions : The patient should beare known to : closely monitoredelevate PCT. : both clinically andby re-assessing PCTwithin 6-24 hours. PCT > 2 ng/mL : Systemic infection: High risk for(sepsis) is likely: progression to severeunless other : systemic infection.causes are known. : PCT >= 10 ng/mL : Important systemic: High likelihood ofinflammatory : severe sepsis orresponse, almost : septic shock.exclusively due to:severe bacterial :sepsis or septic :shock. : BNP: (NAPOLEON: 12/17/2016 21:15) ( MsgRcvd 12/17/2016 21:41) Final results Test Result Flag Units (Reference) B-TYPE NATRIURETIC PEPTIDE 557 H pg/ml (5-100) BMP: (NAPOLEON: 12/17/2016 19:59) ( MsgRcvd 12/17/2016 20:27) Final results Test Result Flag Units (Reference) GLUCOSE 93 mg/dL (70-110) BUN 30 H mg/dL (7-18) CREATININE 2.3 H mg/dL (0.6-1.3) Estimated GFR 23.40 mL/min Estimated GFR- 28.36 mL/min Note: Persistent reduction over 3 months in eGFR<60 mL/min/1.73 m2 defines CKD. Patients with eGFR values>=60 mL/min/1.73 m2 may also have CKD if evidence ofpersistent proteinuria. Additional information may be foundat www.[email or web address].org. SODIUM 138 mmol/L (136-145) POTASSIUM 4.5 mmol/L (3.5-5.1) CHLORIDE 103 mmol/L (98-107) CARBON DIOXIDE 22 mmol/L (21-32) CALCIUM 8.2 L mg/dL (8.5-10.1) . PROGRESS AND PROCEDURES PROCEDURES Per protocol, time-out completed immediately before the procedure. Verified: consent was obtained; consent was reviewed. Central Line Placement: Time: 03:11. A central line was placed in the right internal jugular vein. Per protocol, time-out completed immediately before the procedure. The risks of the procedure, benefits and alternatives were explained. Bloodstream infection prevention education was provided. Consent was obtained. O2 administered. Placed on pulse oximeter and cardiac technologist. Supine position. Hand hygiene observed, sterile barrier precautions adhered to (cap, mask, gown, gloves and large sterile sheet) and chlorhexidine skin antisepsis used. Local anesthetic infiltrated. Triple lumen central line placed using ultrasound guidance with sterile technique and Seldinger technique. Good blood return observed. Catheter was secured. Antibiotic ointment applied. Dressing applied. The patient was clinically stable following the procedure. Post-procedure X-ray showed no pneumothorax and good catheter tip position. Estimated blood loss: 3 mL. Course of Care: 20:40 12/17/16. Patient concerned about no urine output with diuretic. She indicates that about a month ago she was seen at the office where they decreased her diuretic dose. She had been on Lasix and spironolactone together and this was changed to just Lasix. She's been taking 40 mg of Lasix per day. Patient's takes a Lasix for her leg edema and congestive heart failure. Dr. Carreno has been treating this for her. The patient indicates that she has been a little more short of breath this last week. October 30 of this year she had a BUN/creatinine done that were in the normal range. Today she has a BUN/creatinine of 2.3 and 30. She has no history of having abnormal renal studies as far she knows. We'll check a chest x-ray and a BNP. 00:45 12/18/16. Evaluated Pt's knee for arthrocentesis and due to her morbid obesity w/ no landmarks and an INR of 2.5, did not deem blind arthrocentesis as being safe. Dr. Chapman, [facility], agreed. 03:16 12/18/16. Having issues w/ MAP going above and below 65. Will start Vasopressin 0.03u/min and monitor. Transport just arriving. Critical care performed (90 minutes). Time includes: direct patient care, patient reassessment, coordination of patient care, interpretation of data (laboratory data, pulse oximetry and chest xrays), review of patient's medical records, medical consultation and documentation of patient care. Procedures excluded from critical care time: central intravenous line placement- see progress notes. The patient required critical care due to the acute impairment of vital organ systems (cardiovascular and renal) and a high probability of life threatening deterioration. Multiple interventions were required to prevent life threatening deterioration. Discussed case with hospitalist, (call returned 00:44 Dr. Menchaca. He agrees with ortho's decision.). Discussed case with on-call health care provider, (call returned 01:15 Dr. Dumont rail car repairman at [facility]. Agreed w/ Rocephin and Vancomycin and accepted pt.). Reviewed test results and need for additional work-up. Agreed upon treatment plan. Consult obtained from orthopedics. call returned 00:40 Dr. Chapman. He agreed that there is concern for a septic joint and we are not equipped to handle a patient with her extreme body size. He recommended transfer to [facility] if possible. Phone consult only. Disposition: Benefits, risks and alternatives to transfer explained to patient. Transferred to [facility]. Condition: stable. CLINICAL IMPRESSION Sepsis with shock and acute renal failure. Septic joint- left knee. Cellulitis of the abdominal wall and back. (Electronically signed by Ramón Fink Dr. 12/18/2016 3:18)
--- NOTE | 2016-12-18 04:45 | ED NURSING NOTES ---
Clinical Report - Nurses [facility] [address] [place] [address] 12/17/2016 17:05 Patient: PUJA TREJO TRIAGE Triage time 17:26. Acuity: LEVEL 3. Chief Complaint: LEFT LOWER EXTREMITY SWELLING. Location of symptoms- left knee (Tried to get from the bed to the commode this am. Seen here last night, for back and side pain. Got lasix 40mg this am, no urine output since then. Son in caregiver..). Alert. No acute distress. --17:44 Katty Duque R.N. 17:12/17/16. BP: 132/78. HR: 100. RR: 18. O2 saturation: 95% on nasal cannula at 4 liters/minute. Temp: 98.6 F. Pain level now: 910. --17:44 Katty Duque R.N. 17:12/17/16. BP: 132/78. HR: 100. RR: 18. O2 saturation: 95% on nasal cannula at 4 liters/minute. Temp: 98.6 F. Pain level now: 910. --17:44 Katty Duque R.N. Weight: 20.7 kg measured. Height/Length: 62 inches Per Patient. BMI: 8.4. --17:37 Katty Duque R.N. Medications BusPIRone HCl Oral (Tablet 10 mg) 1 tablet, 2x a day. Lopressor Oral (Tablet 50 mg) 1 tablet, 2x a day. Pantoprazole Sodium Oral (Tablet Delayed Release 40 mg) 1 tablet, daily. Warfarin Sodium Oral (Tablet 3 mg) 1-1/2 tablets, daily. --17:37 Katty Duque R.N. Lasix Oral 40 mg, daily. --20:32 Katty Duque R.N. The following entry was struck by Katty Duque R.N., 20:31 (12/17/16) Reason - other. <<STRICKEN ENTRY-- Spironolactone Oral (Tablet 25 mg) 1 tablet, daily. --17:37 Katty Duque R.N. --END STRIKE>>. Allergies No Known Drug Allergy. --17:37 Katty Duque R.N. Medication/allergy information source: the patient. --17:44 Katty Duque R.N. History Arrived by EMS. Historian: patient. Primary physician (vanda). No injury occurred. This occurred today. She has had a skin rash with itching. Location- waist area. She has had trouble walking (Only transfers from bed to commode). ( Last bm yesterday). Treatment APPLICATION ARCHITECT MANAGER: EMS treatment APPLICATION ARCHITECT MANAGER verbally communicated. See EMS report. BP: 142 / 98. HR: 121. RR: 18. O2 saturation: 95 % on oxygen (nasal cannula) (at 4 liters/minute). PAST MEDICAL HX: Tetanus status: unknown. The patient is post-menopausal. SOCIAL HX: Never smoker. No alcohol use or drug use. SKIN INTEGRITY ASSESSMENT: Skin integrity risk assessment was performed per protocol. Risk factors identified include restricted mobility, non ambulatory and bedridden. NUTRITIONAL RISK ASSESSMENT: The nutritional risk assessment revealed no deficiencies. LEARNING NEEDS ASSESSMENT: The learning needs assessment revealed no barriers. FALL RISK ASSESSMENT: Fall risk assessment completed. Risk factors identified include nausea and patient history of fall and impairment of mobility. Fall interventions initiated. Patient placed on stretcher. Side rails up x2. Brakes on Bed in low position. Patient visible from nurses' station. Family at bedside. Call light in reach of patient. Instructed not to get up without assistance. FUNCTIONAL ASSESSMENT: Functional assessment performed: requires total care with the activities of daily living; communication barrier present- this communication barrier is an ongoing problem. --17:44 Katty Duque R.N. PROBLEMS: Back Pain. Dyspnea. Nausea. Diarrhea. Congestive Heart Failure. COPD - Chronic Obstructive Pulmonary Disease. Chronic Venous Insufficiency. Pedal Edema. Hypertension. Cellulitis. Hematuria. Chest Pain. Narcotic Dependence. Atrial Fibrillation. Obesity. Contusion. DVT/PE Risk Factors. DVT - Deep Venous Thrombosis. Abdominal Pain. Irritable Bowel Syndrome. Anxiety Reaction. Morbid obesity. Sialoadenitis. Dental Pain. --17:40 Katty Duque R.N. ADDITIONAL SURGERIES: Cholecystectomy. . Left ankle X3. Leg surgery. Tonsillectomy. --17:40 Katty Duque R.N. Interventions ID band on patient. To room. --17:44 Katty Duque R.N. PHYSICAL ASSESSMENT To room via stretcher. Patient gowned. GENERAL / NEURO / PSYCH: Appears in pain and anxious. EXTREMITIES: Limited ROM present (Unable to stand on the knee). Left knee: tenderness. Limited ROM secondary to swelling. SKIN: Skin is warm and dry. Skin rash. --17:46 Katty Duque R.N. late entry -03:30 AM. GENERAL / NEURO / PSYCH: Appears in pain. EXTREMITIES: Limited ROM present. Increased warmth on the extremities. Lower extremity edema. Right hip. Right knee: swelling. Right leg: swelling. Right ankle: swelling. Right foot: swelling. Left knee: tenderness and swelling (hot). Left leg: tenderness and swelling (hot). Left ankle: tenderness and swelling. Left foot: tenderness and swelling. SKIN: Skin breakdown noted. --04:25 Marco A Reza R.N. NURSING PROGRESS NOTES 3 liters reapplied. Extremity elevated. Patient gowned. Two patient identifiers checked. Call light placed in reach. Side rails up x 2. Bed placed in lowest position. Brakes of bed on. Patient ready for evaluation. --17:46 Katty Duque R.N. 18:22 12/17/2016 Site #1 started via IV in the right upper arm with an 22g angiocath; one attempt. Saline lock flushed with 10 mL saline (unable to draw blod, bad credit collector unable to draw blood. Lab called.). --18:37 Katty Duque R.N. 20:20 12/17/2016 Hydrocodone-APAP (Hydrocodone-Acetaminophen) PO 5/325 mg Tablets 2 tab given. Allergies verified, confirmed 5 rights and sedative warning given to the patient. --20:25 Katty Duque R.N. 20:21 12/17/2016 Toradol IVP 30 mg given over 1 minute(s) via site #1. Allergies verified and confirmed 5 rights. IV patency established. IV site checked: no pain, redness, or swelling. IV flushed thoroughly pre- and post-medication administration. IVP given by RN. --20:26 Katty Duque R.N. 20:27 12/17/16. BP: 83/32. HR: 111. RR: 24. O2 saturation: 96% on nasal cannula at 3 liters/minute. Pain level now: 06/02. --20:30 Katty Duque R.N. 21:13 12/17/2016 Started bag #1 1000 mL IV Fluids IV NS (Saline); bolus of 250 mL over 30 minute(s) then at 500 mL/hr over 30 minute(s) via site #1 via IV pump. Allergies verified and confirmed 5 rights. IV patency established. IV site checked: no pain, redness, or swelling. IV flushed thoroughly pre- and post-medication administration. --21:13 Katty Duque R.N. 21:05. Checked patient name and birthdate. Blood samples drawn from the left forearm with syringe and butterfly by tech per protocol ; labeled in presence of the patient and sent to lab: purple top (pediatric tubes). --21:18 McQuoid, Chantelle, ER Tech1 22:05 12/17/2016 Site #1 removed. Catheter intact. Bandaid applied. --22:20 Katty Duque R.N. 22:06 12/17/2016 Site #1 relocated to the left antecubital space with an 18g angiocath, with aseptic technique and good blood return; one attempt. Blood drawn: rainbow set. Labeled in the presence of the patient and sent to the lab. Saline lock flushed with 10 mL saline (2 sets of blood cultures, and blood banded. Started by NAHUN Strickland). --22:21 Katty Duque R.N. 22:08 12/17/2016 IV Fluids IV NS via IV site #1 Rate Changed: bag #1 decreased to 250 mL/hr via IV pump. IV patency established. IV site checked: no pain, redness, or swelling. IV flushed thoroughly. Confirmed 5 Rights. --22:23 Katty Duque R.N. 22:23 12/17/2016 IV Fluids IV NS via IV site #1 Rate Changed: bag #1 increased to 1000 mL/hr via IV pump. IV patency established. IV site checked: no pain, redness, or swelling. IV flushed thoroughly. Confirmed 5 Rights (verbal order per provider.). --22:23 Katty Duque R.N. monitoring tech, pulse oximeter and NIBP monitor placed on patient; laboratory monitor- Lead II; monitor alarms on. --22:33 Katty Duque R.N. Care transferred and report given (NAHUN Strickland). --22:38 Katty Duque R.N. 22:46 12/17/16. BP: 97/56. HR: 115 (irregularly-irregular). RR: 22. O2 saturation: 98% on nasal cannula at 2 liters/minute. --22:47 Marco A Reza R.N. Call light placed in reach. Side rails up x 1. --22:47 Marco A Reza R.N. Critical value relayed to ED by [facility]. Critical value received by heather GARNICA. Lactate level: 4.7. Critical value read back. Verified lab result and patient ID. ED physician notifed of critical value. --23:08 Heather Rhodes 23:11 12/17/2016 Started bag #1 1000 mL IV Fluids IV NS (Saline); at 150 mL/hr via site #1 via IV pump. Allergies verified and confirmed 5 rights. IV patency established. IV site checked: no pain, redness, or swelling. IV flushed thoroughly pre- and post-medication administration. --23:11 Marco A Reza R.N. 23:11 12/17/2016 IV Fluids IV NS Discontinued: bag #1 infused. Total amount infused: 1000 mL. IV patency established. IV site checked: no pain, redness, or swelling. IV flushed thoroughly. --23:11 Marco A Reza R.N. 23:12 12/17/16. BP: 67/33. HR: 112. RR: 26. O2 saturation: 98%. Temp: 99.1 F. Pain level now: 07/03. --23:18 Marco A Reza R.N. 00:18 12/18/16. BP: 77/40. HR: 122 (irregularly-irregular). RR: 30. O2 saturation: 99% on nasal cannula at 2 liters/minute. Temp: 38 C. --00:20 Marco A Reza R.N. 00:20 12/18/16. BP: 85/56. HR: 122 (irregularly-irregular). RR: 28. O2 saturation: 98% on nasal cannula at 2 liters/minute. --00:24 Marco A Reza R.N. 00:24 12/18/16. BP: 61/29. HR: 116. RR: 26. O2 saturation: 100% on nasal cannula at 2 liters/minute. --00:25 Marco A Reza R.N. 00:30 12/18/2016 IV Fluids IV NS Discontinued: bag #2 completed upon discharge. Total amount infused: 1000 mL. IV patency established. IV site checked: no pain, redness, or swelling. IV flushed thoroughly. --00:30 Marco A Reza R.N. 00:31 12/18/2016 Started bag #1 1000 mL IV Fluids IV NS (Saline); bolus of 1000 mL over 1 hour(s) via site #1. Allergies verified and confirmed 5 rights. IV patency established. IV site checked: no pain, redness, or swelling. IV flushed thoroughly pre- and post-medication administration. --00:31 Marco A Reza R.N. 16 fr temperature sensing leiva catheter placed. Reason for indwelling catheter: critical need to monitor intake and output. During procedure hand hygiene observed and sterile equipment and aseptic technique used. Secured with tape. It was a complicated placement. She tolerated procedure (no urine return.). --00:40 Marco A Reza R.N. 01:19 12/18/16. BP: 81/48. HR: 123 (irregularly-irregular). RR: 26. O2 saturation: 99% on nasal cannula at 3 liters/minute. Temp: 38.2 C. Pain level now: 08/02. --01:20 Marco A Reza R.N. ( patient states that she has not urinated in 24 hours. still no urine output noted out of leiva). --01:20 Juaquin, Marco A, R.N. ( attempted to ultrasound bladder for approximate volume without success). --02:07 Marco A Reaz R.N. 04:02 12/18/16. BP: 79/50. HR: 128. RR: 34. O2 saturation: 98% on nasal cannula at 3 liters/minute. Temp: 38.5 C. Pain level now: 08/02. --04:04 Marco A Reza R.N. late entry -02:20 AM. --04:04 Marco A Reza R.N. late entry -02:40 AM. --04:07 Marco A Reza R.N. 04:05 12/18/16. BP: 88/64. HR: 127 (irregularly-irregular). RR: 32 (irregular). O2 saturation: 98% on nasal cannula at 3 liters/minute. Temp: 38.5 C. Additional comments: Map of 69. --04:07 Marco A Reza R.N. late entry -03:10 AM. --04:09 Marco A Reza R.N. 04:07 12/18/16. BP: 86/60 taken on the left arm, while lying. HR: 130 (irregularly-irregular). RR: 34. O2 saturation: 95% on nasal cannula at 3 liters/minute. Temp: 38.5 C. Pain level now: 08/02. --04:09 Marco A Reza R.N. late entry -03:30 AM. ( transferred patient from [facility] to [facility] with the assistance 10 staff). --04:10 Marco A Reza R.N. late entry -23:00. --00:25 Marco A Reza R.N. late entry -23:20 PM. --00:24 Marco A Reza R.N. late entry -23:50 PM. Reassurance given. Call light placed in reach. --00:20 Marco A Reza R.N. 01:16 12/18/2016 Site #3 started via IV in the right antecubital space with an 18g angiocath; one attempt. Blood drawn: rainbow set. Labeled in the presence of the patient. Saline lock flushed with 10 mL saline. --04:16 Marco A Reza R.N. 02:16 12/18/2016 IV Fluids IV NS Discontinued: bag #3 infused. Total amount infused: 1000 mL. IV patency established. IV site checked: no pain, redness, or swelling. IV flushed thoroughly. --04:16 Marco A Reza R.N. 02:29 12/18/2016 Buspirone (BusPIRone HCl) PO Tablets 10 mg given. Allergies verified and confirmed 5 rights. --04:29 Marco A Reza R.N. 02:57 12/18/2016 Site #2 started via central line in the right; one attempt. --04:12 Marco A Reza R.N. 02:58 12/18/2016 Started 1 gm of Ceftriaxone IVPB in bag #1 50 mL; at 100 mL/hr over 30 minute(s) via site #2 via IV pump. Allergies verified and confirmed 5 rights. IV patency established. IV site checked: no pain, redness, or swelling. IV flushed thoroughly pre- and post-medication administration. --04:13 Marco A Reza R.N. 03:19 12/18/2016 Site #4 started via IV in the left antecubital space with an 18g angiocath; one attempt. Saline lock flushed with 10 mL saline. --04:19 Marco A Reza R.N. 03:56 12/18/2016 Started of Vasopressin Drip IV in bag #1 100 mL; at 0.03 mg/hr via site #2 via IV pump. Allergies verified and confirmed 5 rights. IV patency established. IV site checked: no pain, redness, or swelling. IV flushed thoroughly pre- and post-medication administration. --04:21 Marco A Reza R.N. 04:14 12/18/2016 Started 2 gm of Vancomycin IVPB; at 500 mL/hr over 2 hour(s) via site #2 via IV pump. Allergies verified and confirmed 5 rights. IV patency established. IV site checked: no pain, redness, or swelling. IV flushed thoroughly pre- and post-medication administration. --04:14 Marco A Reza R.N. 04:15 12/18/2016 Tylenol (Acetaminophen) PO Tablets 1000 mg given. Allergies verified and confirmed 5 rights. --04:15 Marco A Reza R.N. 04:16 12/18/2016 Started IV Fluids IV NS (Saline); bolus of 1000 mL wide open via site #2. Allergies verified and confirmed 5 rights. IV patency established. IV site checked: no pain, redness, or swelling. IV flushed thoroughly pre- and post-medication administration. --04:17 Marco A Reza R.N. 04:18 12/18/2016 IV Fluids IV NS Discontinued: bag #4. Total amount infused: 1000 mL. IV patency established. IV site checked: no pain, redness, or swelling. IV flushed thoroughly. --04:18 Marco A Reza R.N. 04:19 12/18/2016 Started IV Fluids IV NS (Saline); bolus of 1000 mL wide open via site #4 via IV pump. Allergies verified and confirmed 5 rights. IV patency established. IV site checked: no pain, redness, or swelling. IV flushed thoroughly pre- and post-medication administration. --04:19 Marco A Reza R.N. 04:20 12/18/2016 IV Fluids IV NS Discontinued: bag #5 discontinued. Total amount infused: 400 mL. IV patency established. IV site checked: no pain, redness, or swelling. IV flushed thoroughly. --04:20 Marco A Reza R.N. 04:22 12/18/2016 Ceftriaxone IVPB Continued: upon transfer at the rate of 100 mL/hr bag #1. IV patency established. IV site checked: no pain, redness, or swelling. IV flushed thoroughly. --04:22 Marco A Reza R.N. 04:22 12/18/2016 Vasopressin Drip IV Continued: at the rate of 0.03 mg/hr bag #1. IV patency established. IV site checked: no pain, redness, or swelling. IV flushed thoroughly. --04:22 Marco A Reza R.N. 04:23 12/18/2016 Vancomycin IVPB Continued: upon transfer at the rate of 500 mL/hr bag #1. IV patency established. IV site checked: no pain, redness, or swelling. IV flushed thoroughly. --04:23 Marco A Reza R.N. DISPOSITION / DISCHARGE Transferred to [facility]. Summary of care provided to EMS and transfer facility via paper and fax. Transported via ambulance by nurse and EMS. Report was given to a nurse in person. Report included patient's care, treatment, medications, reviewed medication reconcilliation, and condition (including any recent changes or anticipated changes). All questions were answered. Report was acknowledged and care was transferred. (NAHUN Howard). --04:26 Marco A Reza R.N. Departure time: 0400 AM. ( Patient transferred to EMS [facility] and lifted into the ambulance.). --04:27 Marco A Reza R.N. 04:00 12/18/16. BP: 102/60. HR: 128. RR: 30. O2 saturation: 96% on nasal cannula at 3 liters/minute. Pain level now: 08/02. --04:27 Marco A Reza R.N. Locked/Released at 12/18/2016 6:57 by Marco A Reza R.N.
--- NOTE | 2016-12-18 04:45 | ED CLINICAL REPORT ---
Clinical Report - Physicians/Mid Levels [facility] [address] [place] [address] 12/17/2016 17:05 [id number] Time Seen: 17:23 Dec 17 2016. Arrived- By private vehicle. Historian- patient. HISTORY OF PRESENT ILLNESS Chief Complaint: LOWER EXTREMITY PAIN. Severity is described as being moderate. The quality is noted to be sharp, aching and "pain". This started today and is still present. Symptoms located in the area of the left knee. The patient has not had redness. No swelling, bladder dysfunction, bowel dysfunction, sensory loss or motor loss. She has had difficulty walking. Patient notes the possibility of an injury. Mechanism of injury- (Moving in bed to get out of bed and knee started to hurt.). Similar symptoms previously: None. Recent medical care: Not recently seen/assessed. REVIEW OF SYSTEMS No cough, chest pain, difficulty breathing, fever or skin rash. No neck pain, back pain, sore throat, abdominal pain or vomiting. No diarrhea. All systems otherwise negative, except as recorded above. PAST HISTORY Arthritis. Chronic back pain. Medications: Lasix Oral 40 mg, daily. BusPIRone HCl Oral (Tablet 10 mg) 1 tablet, 2x a day. Lopressor Oral (Tablet 50 mg) 1 tablet, 2x a day. Pantoprazole Sodium Oral (Tablet Delayed Release 40 mg) 1 tablet, daily. Warfarin Sodium Oral (Tablet 3 mg) 1-1/2 tablets, daily. Allergies: No Known Drug Allergy. SOCIAL HISTORY Never smoker. No alcohol use or drug use. ADDITIONAL NOTES The nursing notes have been reviewed. PHYSICAL EXAM Vital Signs: 12/17/2016 17:26 BP: 132/78. HR: 100. RR: 18. O2 saturation: 95%. Temp: 98.6 F. Pain level now: 9/10. Appearance: Alert. Patient in mild distress. Eyes: Eyes normal inspection. ENT: Pharynx normal. Neck: Normal inspection. CVS: Normal heart rate and rhythm. Heart sounds normal. Respiratory: No respiratory distress. Breath sounds normal. Abdomen: Soft and nontender. (OBESE). Skin: Skin intact. Skin warm. Large area of cellulitis with erythema and warmth to the abdomen and back. Extremities: Left knee: moderate tenderness located in the lateral joint line. Limited ROM secondary to pain (diminished flexion and extension). Neurovascular intact distally. No ligamentous laxity present. Bilateral severe pitting edema of the lower extremities involving both lower legs. Neuro: Oriented X 3. No motor deficit. No sensory deficit. LABS, X-RAYS, AND EKG Chest X-ray: (1. Continued improvement CHF and pulmonary edema 2. Mild bibasilar atelectasis). Views: AP. Technique: good. The X-rays were interpreted by the radiologist and discussed with the radiologist. Interpretation time: 2040. Chest X-ray #2: (R IJ in good placement. No pneumothorax). Views: AP. Technique: good. The X-rays were independently viewed by me and interpreted contemporaneously by me. Interpretation time: 03:09. Lt Knee X-ray: Degenerative joint disease. Views: AP, lateral and oblique. Technique: good. The X-rays were independently viewed by me and interpreted contemporaneously by me. Laboratory Tests: CBC w Diff: (NAPOLEON: 12/17/2016 22:10) ( MsgRcvd 12/17/2016 23:11) Final results Test Result Flag Units (Reference) WHITE BLOOD COUNT 1.9 L K/uL (4.5-11.5) RED BLOOD COUNT 3.94 L M/uL (4.00-5.20) HEMOGLOBIN 10.0 L gm/dL (12.0-16.0) HEMATOCRIT 31.2 L % (36.0-46.0) MEAN CELL VOLUME 79 L fL (80-100) MEAN CORPUSCULAR HGB 25 L pg (26-34) MEAN CORPUSCULAR HGB CONC 32 g/dL (31-37) RED CELL DISTRIBUTION WIDTH 17.3 H % (11.6-14.8) PLATELET COUNT 134 L K/uL (150-400) POLY % 26 L % (50-75) BAND % 54 H % (0-8) LYMPH 6 L % (25-40) MONO 10 % (3-14) EOSINOPHIL % 1 % (0-4) BASOPHIL % 0 % (0-2) METAMYELOCYTE % 2 H % (0-1) MYELOCYTE 1 % (0-1) OTHER CELL TYPE 0 PT with INR: (NAPOLEON: 12/17/2016 18:55) ( [facility] 12/17/2016 19:23) Final results Test Result Flag Units (Reference) INR 2.5 H (0.8-1.2) Low Intensity Therapy: INR 1.5-2.0 PT range 18.5-23.1Mod.Intensity Therapy: INR 2.0-3.0 PT range 23.1-31.5High Intensity Therapy: INR 2.5-3.5 PT range 27.4-35.5High Intensity Therapy 2: INR 3.0-4.0 PT range 31.5-39.3 [id number]: (NAPOLEON: 12/17/2016 22:10) ( [facility] 12/17/2016 23:09) Final results Test Result Flag Units (Reference) LACTIC ACID SEPSIS PROTOCOL 4.7 H mmol/L (0.4-2.0) CRITICAL RESULTS CALLEDCalled to SANDIP IN ED 12/17/16 2308Were 2 patient identifiers used? YWas the result read back? Y [id number]: (NAPOLEON: 12/17/2016 22:10) ( [facility] 12/17/2016 23:03) Final results Test Result Flag Units (Reference) PROCALCITONIN 19.5 H ng/mL (0-0.5) PCT Concentration: Interpretation : Risk/option for action PCT <=0.5 ng/mL : Systemic : Low risk forinfection(sepsis): progression to severeis not likely. : systemic infection.Local bacterial : CAUTION-PCT levelsinfection is : below 0.5 ng/mL do notpossible. : exclude an infection,because localizedinfections (withoutsystemic signs) may beassociated with suchlow levels. If PCT ismeasured very earlyafter a bacterialchallenge (usually <6hours), these valuesmay still be low. Inthis case PCT shouldbe re-assessed 6-24hours later. PCT >0.5 and : Systemic infection: Moderate risk for<= 2 ng/mL : (sepsis) is : progression to severepossible, but : systemic infection.other conditions : The patient should beare known to : closely monitoredelevate PCT. : both clinically andby re-assessing PCTwithin 6-24 hours. PCT > 2 ng/mL : Systemic infection: High risk for(sepsis) is likely: progression to severeunless other : systemic infection.causes are known. : PCT >= 10 ng/mL : Important systemic: High likelihood ofinflammatory : severe sepsis orresponse, almost : septic shock.exclusively due to:severe bacterial :sepsis or septic :shock. : BNP: (NAPOLEON: 12/17/2016 21:15) ( MsgRcvd 12/17/2016 21:41) Final results Test Result Flag Units (Reference) B-TYPE NATRIURETIC PEPTIDE 557 H pg/ml (5-100) BMP: (NAPOLEON: 12/17/2016 19:59) ( MsgRcvd 12/17/2016 20:27) Final results Test Result Flag Units (Reference) GLUCOSE 93 mg/dL (70-110) BUN 30 H mg/dL (7-18) CREATININE 2.3 H mg/dL (0.6-1.3) Estimated GFR 23.40 mL/min Estimated GFR- 28.36 mL/min Note: Persistent reduction over 3 months in eGFR<60 mL/min/1.73 m2 defines CKD. Patients with eGFR values>=60 mL/min/1.73 m2 may also have CKD if evidence ofpersistent proteinuria. Additional information may be foundat www.kidney.org. SODIUM 138 mmol/L (136-145) POTASSIUM 4.5 mmol/L (3.5-5.1) CHLORIDE 103 mmol/L (98-107) CARBON DIOXIDE 22 mmol/L (21-32) CALCIUM 8.2 L mg/dL (8.5-10.1) . PROGRESS AND PROCEDURES PROCEDURES Per protocol, time-out completed immediately before the procedure. Verified: consent was obtained; consent was reviewed. Central Line Placement: Time: 03:11. A central line was placed in the right internal jugular vein. Per protocol, time-out completed immediately before the procedure. The risks of the procedure, benefits and alternatives were explained. Bloodstream infection prevention education was provided. Consent was obtained. O2 administered. Placed on pulse oximeter and pest control worker. Supine position. Hand hygiene observed, sterile barrier precautions adhered to (cap, mask, gown, gloves and large sterile sheet) and chlorhexidine skin antisepsis used. Local anesthetic infiltrated. Triple lumen central line placed using ultrasound guidance with sterile technique and Seldinger technique. Good blood return observed. Catheter was secured. Antibiotic ointment applied. Dressing applied. The patient was clinically stable following the procedure. Post-procedure X-ray showed no pneumothorax and good catheter tip position. Estimated blood loss: 3 mL. Course of Care: 20:40 12/17/16. Patient concerned about no urine output with diuretic. She indicates that about a month ago she was seen at the office where they decreased her diuretic dose. She had been on Lasix and spironolactone together and this was changed to just Lasix. She's been taking 40 mg of Lasix per day. Patient's takes a Lasix for her leg edema and congestive heart failure. Dr. Carreno has been treating this for her. The patient indicates that she has been a little more short of breath this last week. October 30 of this year she had a BUN/creatinine done that were in the normal range. Today she has a BUN/creatinine of 2.3 and 30. She has no history of having abnormal renal studies as far she knows. We'll check a chest x-ray and a BNP. 00:45 12/18/16. Evaluated Pt's knee for arthrocentesis and due to her morbid obesity w/ no landmarks and an INR of 2.5, did not deem blind arthrocentesis as being safe. Dr. Chapman, [facility] [place], agreed. 03:16 12/18/16. Having issues w/ MAP going above and below 65. Will start Vasopressin 0.03u/min and monitor. Transport just arriving. Critical care performed (90 minutes). Time includes: direct patient care, patient reassessment, coordination of patient care, interpretation of data (laboratory data, pulse oximetry and chest xrays), review of patient's medical records, medical consultation and documentation of patient care. Procedures excluded from critical care time: central intravenous line placement- see progress notes. The patient required critical care due to the acute impairment of vital organ systems (cardiovascular and renal) and a high probability of life threatening deterioration. Multiple interventions were required to prevent life threatening deterioration. Discussed case with hospitalist, (call returned 00:44 Dr. Menchaca. He agrees with ortho's decision.). Discussed case with on-call health care provider, (call returned 01:15 Dr. Dumont plastic molding operator at [facility]. Agreed w/ Rocephin and Vancomycin and accepted pt.). Reviewed test results and need for additional work-up. Agreed upon treatment plan. Consult obtained from orthopedics. call returned 00:40 Dr. Chapman. He agreed that there is concern for a septic joint and we are not equipped to handle a patient with her extreme body size. He recommended transfer to [facility] if possible. Phone consult only. Disposition: Benefits, risks and alternatives to transfer explained to patient. Transferred to [facility]. Condition: stable. CLINICAL IMPRESSION Sepsis with shock and acute renal failure. Septic joint- left knee. Cellulitis of the abdominal wall and back. (Electronically signed by Ramón Fink Dr. 12/18/2016 3:18)
--- NOTE | 2016-12-18 04:46 | ED ORDER SUMMARY ---
..... Patient: PUJA TREJO OrderSheet [facility] VisitID: [id number] [place] [address] 56y, F Registration Date/Time: 12/17/2016 ORDER SHEET Weight: 20.7 kg (measured) Allergies: No Known Drug Allergy GENERAL ORDERS: Knee 4V Left Urgent (17:55 12/17/2016 Hammad MCHUGH) (Ack 18:15 Jet) (18:37 SRoberts R.N.) PT with INR Urgent (18:13 12/17/2016 Hammad MCHUGH) (Ack 18:15 Jet) (18:37 SRoberts R.N.) BMP Urgent (19:46 12/17/2016 Hammad MCHUGH) (Ack 19:47 NADIAoulumu) (22:21 SRoberts R.N.) BNP Urgent (20:36 12/17/2016 Hammad MCHUGH) (Ack 20:39 IJurca ER Tech1) (22:21 SRoberts R.N.) Chest 1V Urgent (20:37 12/17/2016 Hammad MCHUGH) (Ack 20:39 RUTHIEurca ER Tech1) (22:21 SRoberts R.N.) CBC w Diff Urgent (21:51 12/17/2016 Walter Menjivar) (Ack 21:53 IJurca ER Tech1) (22:21 SRoberts R.N.) Blood Culture (No) (N/A) Urgent (22:06 12/17/2016 Walter Menjivar) (Ack 22:11 IJurca ER Tech1) (22:21 SRoberts R.N.) Lactic Acid for Sepsis Protocol Urgent (22:06 12/17/2016 Walter Menjivar) (Ack 22:11 IJurca ER Tech1) (22:21 SRoberts R.N.) PCT (Procalcitonin) Urgent (22:06 12/17/2016 Walter Menjivar) (Ack 22:11 IJurca ER Tech1) (22:21 SRoberts R.N.) UA-Culture if indicated Urgent (23:32 12/17/2016 Walter Menjivar) (Ack 23:52 IJurca ER Tech1) Central Line Tray (01:51 12/18/2016 Walter Menjivar) (Ack 2:06 IJurca ER Tech1) (3:01 IJurca ER Tech1) Chest 1V Urgent (02:12 12/18/2016 AMcQuoid ER Tech1 per protocol) (Ack 2:16 IJurca ER Tech1) (3:08 Lance) MEDICATION ORDERS: Hydrocodone-APAP PO 10/650 mg (NOW) (19:47 12/17/2016 Hammad MCHUGH) (Ack 20:09 SRoberts R.N.) (20:25 SRoberts R.N.) Toradol IM 60 mg (NOW) (19:47 12/17/2016 Hammad MCHUGH) (Ack 20:09 SRoberts R.N.) (Cancelled: Physician Order20:25 SRoberts R.N.) Tylenol PO 1,000 mg (NOW) (03:25 12/18/2016 Walter Menjivar) (4:15 HOShaughnessy R.N.) - (Buspirone 10mg) (04:28 12/18/2016 HOShaughramiro R.N. verbal order read back to Walter Menjivar) (4:29 HOShaughbensony R.N.) IV FLUIDS: Toradol IV 30 mg (NOW) (20:26 12/17/2016 SRoberts R.N. verbal order read back to Hammad MCHUGH) (20:26 SRoberts R.N.) IV NS with Normal Saline 1 Liter: initial bolus 250 mL (1000 mL/hr), then 500 mL/hr for X1 (NOW) (21:12 12/17/2016 SRoberts R.N. verbal order read back to Hammad MCHUGH) (21:13 SRoberts R.N.) IV NS : initial bolus none -, then 1000 mL/hr for X1 (NOW) (22:06 12/17/2016 Walter Menjivar) (23:11 HOShaughramiro R.N.) Ceftriaxone IV 1 gm/50mL (NOW) (01:50 12/18/2016 Walter Menjivar) (4:13 Sosa Drew) Vancomycin IV 2 gm/500 mL (NOW) (01:50 12/18/2016 Walter Menjivar) (4:14 Sosa Drew) Vasopressin IV 0.4 units/kg (HIGH ALERT MEDICATION) (04:20 12/18/2016 Sosa Drew per protocol) (4:21 Sosa Drew) ORDER SHEET NOTES: [Electronically signed by Ramón Fink Dr. (03:18 12/18/2016)] [Electronically signed by Marco A Reza R.N. (06:57 12/18/2016)] [Electronically locked/signed by Marco A Reza R.N. (06:57 12/18/2016)]
--- NOTE | 2016-12-18 05:36 | DIAGNOSTIC IMAGING REPORT ---
PROCEDURE: XR CHEST 1 VIEW INDICATION: CENTRAL LINE PLACEMENT TECHNIQUE: Portable AP view (0245 hours). COMPARISON: Compared to chest x-ray on 12/17/2016. FINDINGS: Interim placement of right supraclavicular central line which ends in the superior vena cava. No evidence of pneumothorax. Allowing for suboptimal inspiration, there has been mild improvement in pulmonary vascular congestion and interstitial changes (moderate residual). Moderate cardiomegaly. Mediastinum is normal. Thorax is normal. IMPRESSION: 1. Placement of right supraclavicular central line in superior vena cava (satisfactory position). 2. Mild improvement with resolving congestive heart failure.
--- NOTE | 2016-12-18 06:57 | ED DISCHARGE INSTRUCTIONS ---
Patient: PUJA TREJO General Instructions [facility] VisitID: [id number] [address] [place] [address] 56y, F Registration Date/Time: 12/17/2016 Sepsis with shock and acute renal failure. Septic joint- left knee. Cellulitis of the abdominal wall and back. (Electronically signed by Ramón Fink Dr. 12/18/2016 3:18)
--- NOTE | 2016-12-18 06:57 | ED MAR SUMMARY ---
..... Medication Administration Record [facility] [address] [place] [address] Patient: PUJA TREJO Visit ID: [id number] 56y, F Weight: 20.7 kg Height/Length: 62 in BMI: 8.4 ALLERGIES: No Known Drug Allergy Given 20:20 12/17/2016 Katty Duque R.N. Medication Administered: HYDROCODONE-APAP [PO] (HYDROCODONE-ACETAMINOPHEN), Dose: 2 tab 5/325 mg Tablets PO. Medication Ordered: Hydrocodone-APAP PO 10/650 mg (NOW). Given 20:21 12/17/2016 Katty Duque R.N. Medication Administered: TORADOL [IVP], Dose: 30 mg IVP over 1 minute(s), Site: #1 right upper arm. Medication Ordered: Toradol IV 30 mg (NOW). Start 21:13 12/17/2016 Katty Duque R.N., Stop 23:11 12/17/2016 Marco A Reza R.N. Medication Administered: IV NS (SALINE), Dose: IV Fluids over 30 minute(s), Rate: 500 mL/hr, Bolus: 250 mL over 30 minute(s), Dispensed: 1000 mL bag, Site: #1 right upper arm. Medication Ordered: IV NS with Normal Saline 1 Liter: initial bolus 250 mL (1000 mL/hr), then 500 mL/hr for X1 (NOW). Start 23:11 12/17/2016 Marco A Reza R.N., Stop 00:30 12/18/2016 Marco A Reza R.N. Medication Administered: IV NS (SALINE), Dose: IV Fluids, Rate: 150 mL/hr, Dispensed: 1000 mL bag, Site: #1 left AC. Medication Ordered: IV NS : initial bolus none -, then 1000 mL/hr for X1 (NOW). Start 00:31 12/18/2016 Marco A Reza R.N., Stop 02:16 12/18/2016 Marco A Reza R.N. Medication Administered: IV NS (SALINE), Dose: IV Fluids, Bolus: 1000 mL over 1 hour(s), Dispensed: 1000 mL bag, Site: #1 left AC. Medication Ordered: IV NS : initial bolus none -, then 1000 mL/hr for X1 (NOW). Given 02:29 12/18/2016 Marco A Reza R.N. Medication Administered: BUSPIRONE [PO] (BUSPIRONE HCL), Dose: 10 mg Tablets PO. Medication Ordered: - (Buspirone 10mg). Start 02:58 12/18/2016 Marco A Reza R.N., Continued Upon Transfer 04:22 12/18/2016 Marco A Reza R.N. Medication Administered: CEFTRIAXONE [IVPB], Dose: 1 gm IVPB over 30 minute(s), Rate: 100 mL/hr, Dispensed: 50 mL bag, Site: #2 right central line(see procedure note). Medication Ordered: Ceftriaxone IV 1 gm/50mL (NOW). Start 03:56 12/18/2016 Marco A Reza R.N., Continued Upon Disposition 04:22 12/18/2016 Marco A Reza R.N. Medication Administered: VASOPRESSIN [IV DRIP], Dose: Drip IV, Rate: 0.03 mg/hr, Dispensed: 100 mL bag, Site: #2 right central line(see procedure note). Medication Ordered: Vasopressin IV 0.4 units/kg (HIGH ALERT MEDICATION). Start 04:14 12/18/2016 Marco A Reza R.N., Continued Upon Transfer 04:23 12/18/2016 Marco A Reza R.N. Medication Administered: VANCOMYCIN [IVPB], Dose: 2 gm IVPB over 2 hour(s), Rate: 500 mL/hr, Site: #2 right central line(see procedure note). Medication Ordered: Vancomycin IV 2 gm/500 mL (NOW). Given 04:15 12/18/2016 Marco A Reza R.N. Medication Administered: TYLENOL [PO] (ACETAMINOPHEN), Dose: 1000 mg Tablets PO. Medication Ordered: Tylenol PO 1,000 mg (NOW). Start 04:16 12/18/2016 Marco A Reza R.N., Stop 04:18 12/18/2016 Marco A Reza R.N. Medication Administered: IV NS (SALINE), Dose: IV Fluids, Bolus: 1000 mL wide open, Site: #2 right central line(see procedure note). Medication Ordered: IV NS : initial bolus none -, then 1000 mL/hr for X1 (NOW). Start 04:19 12/18/2016 Marco A Reza R.N., Stop 04:20 12/18/2016 Marco A Reza R.N. Medication Administered: IV NS (SALINE), Dose: IV Fluids, Bolus: 1000 mL wide open, Site: #4 left AC. Medication Ordered: IV NS : initial bolus none -, then 1000 mL/hr for X1 (NOW).
--- NOTE | 2016-12-18 06:57 | ED DISCHARGE INSTRUCTIONS ---
Patient: PUJA TREJO General Instructions [facility] VisitID: [id number] [address] [place] [address] 56y, F Registration Date/Time: 12/17/2016 Sepsis with shock and acute renal failure. Septic joint- left knee. Cellulitis of the abdominal wall and back. (Electronically signed by Ramón Fink Dr. 12/18/2016 3:18)
--- NOTE | 2016-12-18 06:57 | ED MED RECONCILIATION SUMMARY ---
Patient: PUJA TREJO Medication Reconciliation Report [facility] VisitID: [id number] [address] [place] [address] 56y, F Registration Date/Time: 12/17/2016 Weight: 20.7 kg Height/Length: 62 in. BMI: 8.4 ALLERGIES: No Known Drug Allergy The patient's Home Medications are listed below: THE FOLLOWING MEDICATIONS NEED TO BE RECONCILED: BusPIRone HCl Oral (10 mg) 1 tablet, 2x a day Lasix Oral 40 mg, daily Lopressor Oral (50 mg) 1 tablet, 2x a day Pantoprazole Sodium Oral (40 mg) 1 tablet, daily Warfarin Sodium Oral (3 mg) 1-1/2 tablets, daily The source(s) of the original Home Medication information: patient The following Medications were given to the patient in the Emergency Department: Hydrocodone-APAP [PO] PO 2 tab, administered: 12/17/2016 8:20:00 PM Toradol [IVP] IVP 30 mg, administered: 12/17/2016 8:21:00 PM IV NS IV Fluids bolus 250 mL over 30 minute(s), then 500 mL/hr, administered: 12/17/2016 9:13:00 PM IV NS IV Fluids bolus 0, then 150 mL/hr, administered: 12/17/2016 11:11:00 PM IV NS IV Fluids bolus 1000 mL over 1 hour(s), administered: 12/18/2016 12:31:00 AM Ceftriaxone [IVPB] IVPB bolus 0, then 1 gm 100 mL/hr, administered: 12/18/2016 2:58:00 AM Vancomycin [IVPB] IVPB bolus 0, then 2 gm 500 mL/hr, administered: 12/18/2016 4:14:00 AM Tylenol [PO] PO 1000 mg, administered: 12/18/2016 4:15:00 AM IV NS IV Fluids bolus 1000 mL wide open, administered: 12/18/2016 4:16:00 AM IV NS IV Fluids bolus 1000 mL wide open, administered: 12/18/2016 4:19:00 AM Vasopressin [IV Drip] Drip IV bolus 0, then 0.03 mg/hr, administered: 12/18/2016 3:56:00 AM Buspirone [PO] PO 10 mg, administered: 12/18/2016 2:29:00 AM The following Medications were prescribed to the patient: None.
--- NOTE | 2016-12-18 06:57 | ED MED RECONCILIATION SUMMARY ---
Patient: PUJA TREJO Medication Reconciliation Report [facility] VisitID: [id number] [address] [place] [address] 56y, F Registration Date/Time: 12/17/2016 Weight: 20.7 kg Height/Length: 62 in. BMI: 8.4 ALLERGIES: No Known Drug Allergy The patient's Home Medications are listed below: THE FOLLOWING MEDICATIONS NEED TO BE RECONCILED: BusPIRone HCl Oral (10 mg) 1 tablet, 2x a day Lasix Oral 40 mg, daily Lopressor Oral (50 mg) 1 tablet, 2x a day Pantoprazole Sodium Oral (40 mg) 1 tablet, daily Warfarin Sodium Oral (3 mg) 1-1/2 tablets, daily The source(s) of the original Home Medication information: patient The following Medications were given to the patient in the Emergency Department: Hydrocodone-APAP [PO] PO 2 tab, administered: 12/17/2016 8:20:00 PM Toradol [IVP] IVP 30 mg, administered: 12/17/2016 8:21:00 PM IV NS IV Fluids bolus 250 mL over 30 minute(s), then 500 mL/hr, administered: 12/17/2016 9:13:00 PM IV NS IV Fluids bolus 0, then 150 mL/hr, administered: 12/17/2016 11:11:00 PM IV NS IV Fluids bolus 1000 mL over 1 hour(s), administered: 12/18/2016 12:31:00 AM Ceftriaxone [IVPB] IVPB bolus 0, then 1 gm 100 mL/hr, administered: 12/18/2016 2:58:00 AM Vancomycin [IVPB] IVPB bolus 0, then 2 gm 500 mL/hr, administered: 12/18/2016 4:14:00 AM Tylenol [PO] PO 1000 mg, administered: 12/18/2016 4:15:00 AM IV NS IV Fluids bolus 1000 mL wide open, administered: 12/18/2016 4:16:00 AM IV NS IV Fluids bolus 1000 mL wide open, administered: 12/18/2016 4:19:00 AM Vasopressin [IV Drip] Drip IV bolus 0, then 0.03 mg/hr, administered: 12/18/2016 3:56:00 AM Buspirone [PO] PO 10 mg, administered: 12/18/2016 2:29:00 AM The following Medications were prescribed to the patient: None.
--- NOTE | 2016-12-18 06:57 | ED MAR SUMMARY ---
..... Medication Administration Record [facility] [address] [place] [place] [address] Patient: PUJA TREJO Visit ID: [id number] 56y, F Weight: 20.7 kg Height/Length: 62 in BMI: 8.4 ALLERGIES: No Known Drug Allergy Given 20:20 12/17/2016 Katty Duque R.N. Medication Administered: HYDROCODONE-APAP [PO] (HYDROCODONE-ACETAMINOPHEN), Dose: 2 tab 5/325 mg Tablets PO. Medication Ordered: Hydrocodone-APAP PO 10/650 mg (NOW). Given 20:21 12/17/2016 Katty Duque R.N. Medication Administered: TORADOL [IVP], Dose: 30 mg IVP over 1 minute(s), Site: #1 right upper arm. Medication Ordered: Toradol IV 30 mg (NOW). Start 21:13 12/17/2016 Katty Duque R.N., Stop 23:11 12/17/2016 Marco A Reza R.N. Medication Administered: IV NS (SALINE), Dose: IV Fluids over 30 minute(s), Rate: 500 mL/hr, Bolus: 250 mL over 30 minute(s), Dispensed: 1000 mL bag, Site: #1 right upper arm. Medication Ordered: IV NS with Normal Saline 1 Liter: initial bolus 250 mL (1000 mL/hr), then 500 mL/hr for X1 (NOW). Start 23:11 12/17/2016 Marco A Reza R.N., Stop 00:30 12/18/2016 Marco A Reza R.N. Medication Administered: IV NS (SALINE), Dose: IV Fluids, Rate: 150 mL/hr, Dispensed: 1000 mL bag, Site: #1 left AC. Medication Ordered: IV NS : initial bolus none -, then 1000 mL/hr for X1 (NOW). Start 00:31 12/18/2016 Marco A Reza R.N., Stop 02:16 12/18/2016 Marco A Reza R.N. Medication Administered: IV NS (SALINE), Dose: IV Fluids, Bolus: 1000 mL over 1 hour(s), Dispensed: 1000 mL bag, Site: #1 left AC. Medication Ordered: IV NS : initial bolus none -, then 1000 mL/hr for X1 (NOW). Given 02:29 12/18/2016 Marco A Reza R.N. Medication Administered: BUSPIRONE [PO] (BUSPIRONE HCL), Dose: 10 mg Tablets PO. Medication Ordered: - (Buspirone 10mg). Start 02:58 12/18/2016 Marco A Reza R.N., Continued Upon Transfer 04:22 12/18/2016 Marco A Reza R.N. Medication Administered: CEFTRIAXONE [IVPB], Dose: 1 gm IVPB over 30 minute(s), Rate: 100 mL/hr, Dispensed: 50 mL bag, Site: #2 right central line(see procedure note). Medication Ordered: Ceftriaxone IV 1 gm/50mL (NOW). Start 03:56 12/18/2016 Marco A Reza R.N., Continued Upon Disposition 04:22 12/18/2016 Marco A eRza R.N. Medication Administered: VASOPRESSIN [IV DRIP], Dose: Drip IV, Rate: 0.03 mg/hr, Dispensed: 100 mL bag, Site: #2 right central line(see procedure note). Medication Ordered: Vasopressin IV 0.4 units/kg (HIGH ALERT MEDICATION). Start 04:14 12/18/2016 Marco A Reza R.N., Continued Upon Transfer 04:23 12/18/2016 Marco A Reza R.N. Medication Administered: VANCOMYCIN [IVPB], Dose: 2 gm IVPB over 2 hour(s), Rate: 500 mL/hr, Site: #2 right central line(see procedure note). Medication Ordered: Vancomycin IV 2 gm/500 mL (NOW). Given 04:15 12/18/2016 Marco A Reza R.N. Medication Administered: TYLENOL [PO] (ACETAMINOPHEN), Dose: 1000 mg Tablets PO. Medication Ordered: Tylenol PO 1,000 mg (NOW). Start 04:16 12/18/2016 Marco A Reza R.N., Stop 04:18 12/18/2016 Marco A Reza R.N. Medication Administered: IV NS (SALINE), Dose: IV Fluids, Bolus: 1000 mL wide open, Site: #2 right central line(see procedure note). Medication Ordered: IV NS : initial bolus none -, then 1000 mL/hr for X1 (NOW). Start 04:19 12/18/2016 Marco A Reza R.N., Stop 04:20 12/18/2016 Marco A Reza R.N. Medication Administered: IV NS (SALINE), Dose: IV Fluids, Bolus: 1000 mL wide open, Site: #4 left AC. Medication Ordered: IV NS : initial bolus none -, then 1000 mL/hr for X1 (NOW).
== END 2016-12-18 04:25 | disposition short-term general hospital (02) ==
LOC: ED SRH 17:04
DX: A41.9 Sepsis, unspecified organism (principal); M00.9 Pyogenic arthritis, unspecified; R65.21 Severe sepsis with septic shock; N17.9 Acute kidney failure, unspecified; L03.311 Cellulitis of abdominal wall; L03.312 Cellulitis of back [any part except buttock and flank]; I10 Essential (primary) hypertension; I48.91 Unspecified atrial fibrillation; J44.9 Chronic obstructive pulmonary disease, unspecified; Z79.01 Long term (current) use of anticoagulants